=== PATIENT | male | born 1975 | race Caucasian/White ===

== ENCOUNTER 2019-05-02 00:06 | Emergency (ER) | payer BC ==
[2019-05-02] MEDS ORDERED: Ketorolac 60 MG/2 ML SDV IM ONE (00:42)
[2019-05-02] MEDS ORDERED: methylPREDNISolone Sodium Succinate 125 MG/2 ML SDV IM ONE (00:42)
--- NOTE | 2019-05-02 00:44 | EDM.PDOC ---
ED HPI GENERAL MEDICAL PROBLEM - General Chief Complaint: Back Pain or Injury Stated Complaint: BACK PAIN Time Seen by Provider: 05/02/19 00:19 - History of Present Illness INITIAL COMMENTS - FREE TEXT/NARRATIVE: HISTORY AND PHYSICAL: History of present illness: The patient is a 43-year-old male with a history of herniated disc in 2016 for which he had an MRI here on June 25, 2016 which showed a protruding disc at L5- S1 with disc impingement on the right para sagittal S1 nerve root and I actually saw this patient 2 days afterwards for pain and gave him pain medication. He followed up in our clinic and did physical therapy for 6-8 weeks as well as saw chiropractor and the pain significantly improved and he never had to have surgery. The patient does say that as a result of this herniated disc he does have residual nerve numbness on his right leg going down to his foot and that is not new or different this evening. He says that about 2 months ago he started having new back pain without any new injury or activity and it is more on his left side now. He says that he has seen his chiropractor and he does have an appointment in our clinic on Tuesday to have a repeat MRI and evaluation and has been starting to use his old medications from his prior problem in 2016. He has used [id number] Tylenol as well as an old oxycodone. He says that the pain worsened tonight and he came for evaluation. He has no bowel or bladder disturbances no flank pain no hematuria or dysuria and no other systemic issues. He says the pain originates in his butt on the left and goes down his leg very similar to his issue in 2016 but on the opposite side. Review of systems: As per history of present illness and below otherwise all systems reviewed and negative. Past medical history: As per history of present illness and as reviewed below otherwise noncontributory. Surgical history: As per history of present illness and as reviewed below otherwise noncontributory. Social history: No reported history of drug or alcohol abuse. Family history: As per history of present illness and as reviewed below otherwise noncontributory. Physical exam: General: Well-developed well-nourished man who is nontoxic and ambulated into the ED without assistance. Vital signs are noted by me HEENT: Atraumatic, normocephalic, negative for conjunctival pallor or scleral icterus, mucous membranes moist, throat clear, neck supple, nontender, trachea midline. Lungs: Clear to auscultation, breath sounds equal bilaterally, chest nontender. Heart: S1S2, regular, rate and rhythm no overt murmurs Abdomen: Soft, nondistended, nontender. NABS. Negative for costovertebral tenderness. Pelvis: Stable nontender. Genitourinary: Deferred. Rectal: Deferred. Extremities: Atraumatic, negative for cords or calf pain. Neurovascular unremarkable. No pedal edema Neuro: Awake, alert, oriented. Cranial nerves II through XII unremarkable. Cerebellum unremarkable. Motor and sensory unremarkable throughout. Exam nonfocal. Patellar reflexes are +2 over 4 bilaterally and dorsi and plantar flexion is intact 5/5 bilaterally inclusive of the great toe and inversion and even version of the feet is intact. Back: There are no midline step-offs in his defects of the thoracic or lumbar spine no posterior pelvis tenderness and I cannot reproduce the pain by palpating the patient's butt cheek area at the sciatic groove Diagnostics: Therapeutics: Toradol IM Solu-Medrol IM As the patient has had a history of reduced renal function I will not advised nonsteroidals but give one dose of Toradol here. I will place him on prednisone and also give him a muscle relaxer and some Percocet and stressed the need to follow-up with his provider as scheduled on TuesdayAshley. The patient is aware of reasons to return to the ED. I advised him not to take his old pain medication as there are 2 years old and are likely . The patient does tell me he did take an oxycodone which was 2 years old a proximally in our half ago and is concerned about getting a shot of Dilaudid like I gave him last time and I will hold doing that. Impression: Acute on chronic back pain, likely herniated disc with sciatica Definitive disposition and diagnosis as appropriate pending reevaluation and review of above. low bACK Pain Score (Numeric/FACES): 8 - Related Data Allergies Allergy/AdvReac Type Severity Reaction Status Date / Time erythromycin base Allergy Rash Verified 05/02/19 00:08 penicillin Allergy Rash Verified 05/02/19 00:08 Home Meds: Home Meds Ascorbic Acid [Vitamin C] 1 tab PO DAILY 05/02/19 [History] Fish Oil/[place]-3 Fatty Acids [Fish Oil 1,000 MG] 1 tab PO DAILY 05/02/19 [ History] oxyCODONE 0 mg PO ASDIRECTED PRN 05/02/19 [History] Past Medical History HEENT History: Reports: None Cardiovascular History: Reports: None Respiratory History: Reports: None Gastrointestinal History: Reports: GERD Genitourinary History: Reports: None Musculoskeletal History: Reports: None Neurological History: Reports: None, Other (See Below) Other Neuro History: HERNIATED DISC Psychiatric History: Reports: None Endocrine/Metabolic History: Reports: None Hematologic History: Reports: None Immunologic History: Reports: None Oncologic (Cancer) History: Reports: None Dermatologic History: Reports: None - Infectious Disease History Infectious Disease History: Reports: None - Past Surgical History Head Surgeries/Procedures: Reports: None GI Surgical History: Reports: Hernia, Inguinal Musculoskeletal Surgical History: Reports: Arthroscopic Knee, Other (See Below) Other Musculoskeletal Surgeries/Procedures:: HERNIATED DISK Social & Family History - Family History Family Medical History: Noncontributory - Tobacco Use Smoking Status *Q: Never Smoker - Recreational Drug Use Recreational Drug Use: No ED ROS GENERAL - Review of Systems Review Of Systems: ROS reveals no pertinent complaints other than HPI. ED EXAM, GENERAL - Physical Exam Exam: See Below (See dictation) Course - Vital Signs Last Recorded V/S: Last Vital Signs Temp 36.3 C 05/02/19 00:20 Pulse 78 05/02/19 00:20 Resp 18 05/02/19 00:20 BP 123/82 05/02/19 00:20 Pulse Ox 96 05/02/19 00:20 - Orders/Labs/Meds Meds: Medications Discontinued Medications Generic Name Dose Route Start Last Admin Trade Name Freq PRN Reason Stop Dose Admin Ketorolac Tromethamine 60 mg 05/02/19 00:42 Toradol IM 05/02/19 00:43 ONETIME ONE Methylprednisolone Sodium Succinate 125 mg 05/02/19 00:42 Solu-Medrol IM 05/02/19 00:43 ONETIME ONE Departure - Departure Time of Disposition: 00:51 Disposition: Home, Self-Care 01 Condition: Good Clinical Impression: Acute exacerbation of chronic low back pain Herniated intervertebral disc Qualifiers: Spinal region: lumbar Qualified Code(s): M51.26 - Other intervertebral disc displacement, lumbar region - Discharge Information Referrals: Ashley Rainey PA [Primary Care Provider] - Forms: ED Department Discharge Additional Instructions: The following information is given to patients seen in the emergency department who are being discharged to home. This information is to outline your options for follow-up care. We provide all patients seen in our emergency department with a follow-up referral. The need for follow-up, as well as the timing and circumstances, are variable depending upon the specifics of your emergency department visit. If you don't have a primary care physician on staff, we will provide you with a referral. We always advise you to contact your personal physician following an emergency department visit to inform them of the circumstance of the visit and for follow-up with them and/or the need for any referrals to a consulting specialist. The emergency department will also refer you to a specialist when appropriate. This referral assures that you have the opportunity for followup care with a specialist. All of these measure are taken in an effort to provide you with optimal care, which includes your followup. Under all circumstances we always encourage you to contact your private physician who remains a resource for coordinating your care. When calling for followup care, please make the office aware that this follow-up is from your recent emergency room visit. If for any reason you are refused follow-up, please contact the [facility] emergency department at and ask to speak to the emergency department charge nurse. [facility] Primary care- Internal Medicine and Family [address] [address] Please take all medications as prescribed and keep your appointment as scheduled with your provider in the clinic on Tuesday for probable outpatient MRI scheduling and further care. Return to ER as needed and as discussed. Do not take your old medications. You have been given prednisone, Percocet, Flexeril from [facility]
[2019-05-02 01:15] VITALS: BP 121/78
== END 2019-05-02 01:10 | disposition home or self-care (01) ==
LOC: MW.ED 00:06
DX: M51.26 Other intervertebral disc displacement, lumbar region (principal); Z88.0 Allergy status to penicillin; Z88.1 Allergy status to other antibiotic agents
CPT/HCPCS: 96372; 99283; J1885; J2930

== ENCOUNTER 2021-01-15 18:16 | Emergency (ER) | payer BC ==
[2021-01-15] MEDS ORDERED: Sodium Chloride 0.9% 1,000 ML IV ONE (18:53)
[2021-01-15] MEDS ORDERED: Sodium Chloride 0.9% 10 ML Syringe FLUSH PRN (18:53)
[2021-01-15] MEDS ORDERED: Acetaminophen 500 MG Tab PO ONE (18:53)
[2021-01-15] MEDS ORDERED: Sodium Chloride 0.9% 2.5 ML Syringe FLUSH PRN (18:53)
[2021-01-15] MEDS ORDERED: Ketorolac 30 MG/ML SDV IVPUSH ONE (18:53)
--- NOTE | 2021-01-15 19:29 | CR ---
HISTORY: Fever and cough COMPARISON: None available FINDINGS: A portable erect AP view of the chest was obtained at 1914 hours. The lungs are clear. No focal or diffuse infiltrates are present. The heart is normal in size. The mediastinum is normal in appearance. The osseous structures are normal in appearance for the patient`s age. IMPRESSION: Normal portable chest single view. Dictated by Edil Fitzpatrick MD @ Jan 15 2021 7:26PM Signed by Dr. Edil Fitzpatrick @ Jan 15 2021 7:27PM
[2021-01-15 19:48] LABS: CARBON DIOXIDE,CO2 26.1 mmol/L (21.0-32.0); POTASSIUM,K 3.9 mmol/L (3.5-5.1)
[2021-01-15 20:09] LABS: CORONAVIRUS COVID-19 NAA POSITIVE (NEGATIVE); INFLUENZA A NAA NEGATIVE (NEGATIVE); INFLUENZA B NAA NEGATIVE (NEGATIVE)
--- NOTE | 2021-01-15 20:42 | EDM.PDOC ---
ED HPI GENERAL MEDICAL PROBLEM - General Chief Complaint: Fever Stated Complaint: HIGH CONSISTEN FEVER Time Seen by Provider: 01/15/21 18:22 - History of Present Illness INITIAL COMMENTS - FREE TEXT/NARRATIVE: HISTORY AND PHYSICAL: History of present illness: This is a 45-year-old healthy gentleman who presents ER today complaining of fever for the last 4 to 5 days. Patient denies any nausea, vomiting, diarrhea, dysuria, frequency, urgency, chest pain, shortness of breath. Patient reports that he has been drinking bottles of Pedialyte without difficulty. Patient reports that he has an occasional nonproductive cough. Patient denies any shortness of breath. Patient denies any abdominal discomfort or chest pain. Patient denies any known Covid exposures. Patient reports he has not had his coronavirus vaccine as of yet. Patient denies any history of hypertension, diabetes, liver, lung, kidney problems. Patient denies any history of immunocompromise state. Review of systems: As per history of present illness and below otherwise all systems reviewed and negative. Past medical history: As per history of present illness and as reviewed below otherwise noncontributory. Surgical history: As per history of present illness and as reviewed below otherwise noncontributory. Social history: No reported history of drug or alcohol abuse. Family history: As per history of present illness and as reviewed below otherwise noncontributory. Physical exam: This patient was seen and evaluated during the 2019 SARS-CoV-2 novel coronavirus pandemic period. Community viral transmission is ongoing at time of this encounter and the emergency department is operating under pandemic response procedures. Constitutional: Patient is oriented to person, place, and time. Appears well- developed and well-nourished. No distress. HEENT: Moist mucous membranes Head: Normocephalic and atraumatic Eyes: Right eye exhibits no discharge. Left eye exhibits no discharge. No scleral icterus Neck: Normal range of motion. No tracheal deviation present. Cardiovascular: Normal rate and regular rhythm. Pulmonary: Effort normal, no respiratory distress. Abdominal: No distention Musculoskeletal: Normal range of motion Neurologic: Alert and oriented to person, place and time. Skin: [place], warm and dry. Psychiatric: Normal mood and affect. Behavior is normal. Judgment and thought content normal. Nursing note and vital signs have been reviewed Patient's ER physical exam significant for lungs clear without any wheezing rales or rhonchi, oropharynx clear, tympanic membranes intact. Patient is resting comfortably in bed without any tachypnea or difficulty speaking in full sentences. Patient is ambulating in the ED without difficulty. Diagnostics: CBC, CMP unremarkable Chest Xray: Normal cardiac silhouette No infiltrates or effusions identified. No PTX No evidence of acute bony fracture. As interpreted by ER MD: Dandre Coronavirus test positive Therapeutics: NSS x1 L Toradol 30 mg IV x1 Tylenol 1 g p.o. x1 Assessment and plan: This is a 45-year-old gentleman who presents ER today secondary to fever for several days. Patient reports that his fever defervesced as with acetaminophen however shortly thereafter he reports of spikes back up to 104 range. Patient's labs are all unremarkable except for his coronavirus test which is positive. I have had a long discussion with the patient regarding the test results and options. Patient's pulse ox currently is between 93 to 97% on room air. At this time, the patient does not meet criteria for inpatient/observation level of care. At this time there is no indication for treatment with antibiotics, remdesivir, steroids. Patient be discharged home with instructions to self quarantine and to follow-up with his primary care physician as well as the [facility] department for further instructions. Reassessment at the time of disposition demonstrates that the patient is in no acute distress. The patient has remained stable throughout the entire ED visit and is without objective evidence for acute process requiring urgent intervention or hospitalization. The patient is stable for discharge, counseling is provided as documented above, discussed symptomatic treatment and specific conditions for return. I have spoken with the patient/caregiver and discussed todays findings, in addition to providing specific details for the plan of care. Questions are answered and there is agreement with the plan. Definitive disposition and diagnosis as appropriate pending reevaluation and review of above. Generalized Pain Score (Numeric/FACES): 2 - Related Data Allergies Allergy/AdvReac Type Severity Reaction Status Date / Time erythromycin base Allergy Rash Verified 01/15/21 18:40 penicillin Allergy Rash Verified 01/15/21 18:40 Home Meds: Home Meds Losartan [Cozaar] 01/15/21 [History] atorvaSTATin Calcium [Atorvastatin Calcium] 01/15/21 [History] Past Medical History HEENT History: Reports: None Cardiovascular History: Reports: None, High Cholesterol Respiratory History: Reports: None Gastrointestinal History: Reports: GERD Genitourinary History: Reports: None Other Genitourinary History: Enlarged kidney filter Musculoskeletal History: Reports: None Neurological History: Reports: None, Other (See Below) Other Neuro History: HERNIATED DISC Psychiatric History: Reports: None Endocrine/Metabolic History: Reports: None Hematologic History: Reports: None Immunologic History: Reports: None Oncologic (Cancer) History: Reports: None Dermatologic History: Reports: None - Infectious Disease History Infectious Disease History: Reports: Chicken Pox - Past Surgical History Head Surgeries/Procedures: Reports: None GI Surgical History: Reports: Hernia, Inguinal Musculoskeletal Surgical History: Reports: Arthroscopic Knee, Other (See Below) Other Musculoskeletal Surgeries/Procedures:: HERNIATED DISK Social & Family History - Family History Family Medical History: No Pertinent Family History - Tobacco Use Tobacco Use Status *Q: Never Tobacco User - Caffeine Use Caffeine Use: Reports: Coffee - Recreational Drug Use Recreational Drug Use: No ED ROS GENERAL - Review of Systems Review Of Systems: See Below ED EXAM, GENERAL - Physical Exam Exam: See Below Course - Vital Signs Last Recorded V/S: Last Vital Signs Temp 100.9 F H 01/15/21 19:18 Pulse Resp BP Pulse Ox - Orders/Labs/Meds Orders: Active Orders 24 hr Category Date Time Status Sodium Chloride 0.9% [Saline Flush] Med 01/15/21 18:53 Active 10 ml FLUSH ASDIRECTED PRN Sodium Chloride 0.9% [Saline Flush] Med 01/15/21 18:53 Active 2.5 ml FLUSH ASDIRECTED PRN Saline Lock Insert [OM.PC] Stat Oth 01/15/21 18:53 Ordered Medication Orders Sodium Chloride (Saline Flush) 10 ml FLUSH ASDIRECTED PRN PRN Reason: Keep Vein Open Last Admin: 01/15/21 19:18 Dose: 10 ml Documented by: GOPI Sodium Chloride (Saline Flush) 2.5 ml FLUSH ASDIRECTED PRN PRN Reason: Keep Vein Open Last Admin: 01/15/21 19:19 Dose: 2.5 ml Documented by: KLEMANDO Labs: Laboratory Tests 01/15/21 01/15/21 01/15/21 Range/Units 19:15 19:15 19:30 WBC 7.59 (4.0-11.0) K/uL RBC 4.44 L (4.50-5.90) M/uL Hgb 14.0 (13.0-17.0) g/dL Hct 40.8 (38.0-50.0) % MCV 91.9 (80.0-98.0) fL MCH 31.5 (27.0-32.0) pg MCHC 34.3 (31.0-37.0) g/dL RDW Std Deviation 43.3 (28.0-62.0) fl RDW Coeff of Theo 13 (11.0-15.0) % Plt Count 248 (150-400) K/uL MPV 9.70 (7.40-12.00) fL Neut % (Auto) 86.1 H (48.0-80.0) % Lymph % (Auto) 6.6 L (16.0-40.0) % [place] % (Auto) 7.0 (0.0-15.0) % Eos % (Auto) 0.0 (0.0-7.0) % Baso % (Auto) 0.3 (0.0-1.5) % Neut # (Auto) 6.5 H (1.4-5.7) K/uL Lymph # (Auto) 0.5 L (0.6-2.4) K/uL [place] # (Auto) 0.5 (0.0-0.8) K/uL Eos # (Auto) 0.0 (0.0-0.7) K/uL Baso # (Auto) 0.0 (0.0-0.1) K/uL Nucleated RBC % 0.0 /100WBC Nucleated RBCs # 0 K/uL Sodium 135 L (136-148) mmol/L Potassium 3.9 (3.5-5.1) mmol/L Chloride 99 (98-107) mmol/L Carbon Dioxide 26.1 (21.0-32.0) mmol/L BUN 17 (7.0-18.0) mg/dL Creatinine 1.5 H (0.8-1.3) mg/dL Est Cr Clr Drug Dosing 67.63 mL/min Estimated GFR (MDRD) 51.1 ml/min Glucose 112 H (74-106) mg/dL Calcium 8.8 (8.5-10.1) mg/dL Total Bilirubin 0.4 (0.2-1.0) mg/dL AST 21 (15-37) IU/L ALT 33 (14-63) IU/L Alkaline Phosphatase 64 (46-116) U/L Total Protein 7.6 (6.4-8.2) g/dL Albumin 3.3 L (3.4-5.0) g/dL Globulin 4.3 H (2.6-4.0) g/dL Albumin/Globulin Ratio 0.8 L (0.9-1.6) Urine Color YELLOW Urine Appearance HAZY Urine pH 5.0 (5.0-8.0) Ur Specific [place] >= 1.030 (1.001-1.035) Urine Protein 100 H (NEGATIVE) mg/dL Urine Glucose (UA) NEGATIVE (NEGATIVE) mg/dL Urine Ketones TRACE H (NEGATIVE) mg/dL Urine Occult Blood NEGATIVE (NEGATIVE) Urine Nitrite NEGATIVE (NEGATIVE) Urine Bilirubin NEGATIVE (NEGATIVE) Urine Urobilinogen 0.2 (<2.0) EU/dL Ur Leukocyte Esterase NEGATIVE (NEGATIVE) Urine RBC 0-1 (0-2/HPF) Urine WBC 0-1 (0-5/HPF) Ur Epithelial Cells RARE (NONE-FEW) Urine Bacteria RARE (NEGATIVE) Influenza Type A RNA (NEGATIVE) Influenza Type B RNA (NEGATIVE) SARS-CoV-2 RNA (MELLISSA) (NEGATIVE) 01/15/21 Range/Units 19:30 WBC (4.0-11.0) K/uL RBC (4.50-5.90) M/uL Hgb (13.0-17.0) g/dL Hct (38.0-50.0) % MCV (80.0-98.0) fL MCH (27.0-32.0) pg MCHC (31.0-37.0) g/dL RDW Std Deviation (28.0-62.0) fl RDW Coeff of Theo (11.0-15.0) % Plt Count (150-400) K/uL MPV (7.40-12.00) fL Neut % (Auto) (48.0-80.0) % Lymph % (Auto) (16.0-40.0) % [place] % (Auto) (0.0-15.0) % Eos % (Auto) (0.0-7.0) % Baso % (Auto) (0.0-1.5) % Neut # (Auto) (1.4-5.7) K/uL Lymph # (Auto) (0.6-2.4) K/uL [place] # (Auto) (0.0-0.8) K/uL Eos # (Auto) (0.0-0.7) K/uL Baso # (Auto) (0.0-0.1) K/uL Nucleated RBC % /100WBC Nucleated RBCs # K/uL Sodium (136-148) mmol/L Potassium (3.5-5.1) mmol/L Chloride (98-107) mmol/L Carbon Dioxide (21.0-32.0) mmol/L BUN (7.0-18.0) mg/dL Creatinine (0.8-1.3) mg/dL Est Cr Clr Drug Dosing mL/min Estimated GFR (MDRD) ml/min Glucose (74-106) mg/dL Calcium (8.5-10.1) mg/dL Total Bilirubin (0.2-1.0) mg/dL AST (15-37) IU/L ALT (14-63) IU/L Alkaline Phosphatase (46-116) U/L Total Protein (6.4-8.2) g/dL Albumin (3.4-5.0) g/dL Globulin (2.6-4.0) g/dL Albumin/Globulin Ratio (0.9-1.6) Urine Color Urine Appearance Urine pH (5.0-8.0) Ur Specific [place] (1.001-1.035) Urine Protein (NEGATIVE) mg/dL Urine Glucose (UA) (NEGATIVE) mg/dL Urine Ketones (NEGATIVE) mg/dL Urine Occult Blood (NEGATIVE) Urine Nitrite (NEGATIVE) Urine Bilirubin (NEGATIVE) Urine Urobilinogen (<2.0) EU/dL Ur Leukocyte Esterase (NEGATIVE) Urine RBC (0-2/HPF) Urine WBC (0-5/HPF) Ur Epithelial Cells (NONE-FEW) Urine Bacteria (NEGATIVE) Influenza Type A RNA NEGATIVE (NEGATIVE) Influenza Type B RNA NEGATIVE (NEGATIVE) SARS-CoV-2 RNA (MELLISSA) POSITIVE H (NEGATIVE) Meds: Medications Generic Name Dose Route Start Last Admin Trade Name Freq PRN Reason Stop Dose Admin Sodium Chloride 10 ml 01/15/21 18:53 01/15/21 19:18 Saline Flush FLUSH 10 ml ASDIRECTED PRN Administration Keep Vein Open Sodium Chloride 2.5 ml 01/15/21 18:53 01/15/21 19:19 Saline Flush FLUSH 2.5 ml ASDIRECTED PRN Administration Keep Vein Open Discontinued Medications Generic Name Dose Route Start Last Admin Trade Name Ena PRN Reason Stop Dose Admin Acetaminophen 1,000 mg 01/15/21 18:53 01/15/21 19:18 Tylenol Extra Strength PO 01/15/21 18:54 1,000 mg ONETIME ONE Administration Sodium Chloride 1,000 mls @ 999 mls/hr 01/15/21 18:53 01/15/21 19:17 Normal Saline IV 01/15/21 19:53 999 mls/hr .Bolus ONE Administration Ketorolac Tromethamine 30 mg 01/15/21 18:53 01/15/21 19:17 Toradol IVPUSH 01/15/21 18:54 30 mg ONETIME ONE Administration Departure - Departure Time of Disposition: 20:42 Disposition: Home, Self-Care 01 Condition: Good Clinical Impression: COVID-19 virus infection - Discharge Information Instructions: COVID-19 Vaccine Information, COVID-19 Frequently Asked Questions, 10 Things You Can Do to Manage Your COVID-19 Symptoms at Home - CDC, COVID-19: Quarantine vs. Isolation - CDC, Prevent the Spread of COVID-19 if You Are Sick - [facility] [place] Referrals: Ashley Rainey PA [Primary Care Provider] - Additional Instructions: You were seen and evaluated in the ER today secondary to fever for several days. All your test except for your coronavirus test have come back and have been unremarkable. Your coronavirus test was positive today in the ED. You should go home and rest, continue drinking plenty of fluids, you can take acetaminophen 650 mg every 6 hours as needed for fever. You can also add ibuprofen 600 mg every 6 hours as needed for fever and muscle aches. 1. Your COVID-19 screening is positive. That means you do have the coronavirus and you are considered contagious. Your vital signs and oxygen saturation are well enough that you were able to monitor your symptoms at home. Continue to monitor for trouble breathing, new confusion or inability to arouse, bluish lips or face or any of the other symptoms we discussed -if this occurs please return to the emergency room. 2. Please self quarantine over the next 10 days. Inform any persons that you have been in contact with since you started becoming symptomatic that you have tested positive; they should be made aware and take the appropriate steps as needed. 3. You can take NyQuil during the evening to help get a restful night sleep. May alternate Tylenol and ibuprofen as needed for pain and fever management. 4. The [facility] department will be calling you and following up with you. The [facility] [employer] Hotline phone number , They are open Tuesday - Tuesday 7am - 7pm. Follow up with your primary care provider for re-evaluation and re-testing after the 10 day quarantine and discuss when you should be seen. The following information is given to patients seen in the emergency department who are being discharged to home. This information is to outline your options for follow-up care. We provide all patients seen in our emergency department with a follow-up referral. The need for follow-up, as well as the timing and circumstances, are variable depending upon the specifics of your emergency department visit. If you don't have a primary care physician on staff, we will provide you with a referral. We always advise you to contact your personal physician following an emergency department visit to inform them of the circumstance of the visit and for follow-up with them and/or the need for any referrals to a consulting specialist. The emergency department will also refer you to a specialist when appropriate. This referral assures that you have the opportunity for follow-up care with a specialist. All of these measure are taken in an effort to provide you with optimal care, which includes your follow-up. Under all circumstances we always encourage you to contact your private physician who remains a resource for coordinating your care. When calling for follow-up care, please make the office aware that this follow-up is from your recent emergency room visit. If for any reason you are refused follow-up, please contact the [facility] Emergency Department at and asked to speak to the emergency department charge nurse. Hernan Adolfo [facility] - Primary Care [address] [place] [id number] [facility] [address] [place] [address] Sepsis Event Note (ED) - Evaluation Sepsis Screening Result: No Definite Risk - Focused Exam Vital Signs: Vital Signs Temp 01/15/21 19:18 100.9 F H - My Orders Last 24 Hours: My Active Orders 01/15/21 18:53 Sodium Chloride 0.9% [Saline Flush] 10 ml FLUSH ASDIRECTED PRN Sodium Chloride 0.9% [Saline Flush] 2.5 ml FLUSH ASDIRECTED PRN Saline Lock Insert [OM.PC] Stat - Assessment/Plan Last 24 Hours: My Active Orders 01/15/21 18:53 Sodium Chloride 0.9% [Saline Flush] 10 ml FLUSH ASDIRECTED PRN Sodium Chloride 0.9% [Saline Flush] 2.5 ml FLUSH ASDIRECTED PRN Saline Lock Insert [OM.PC] Stat
[2021-01-15 20:55] VITALS: BP 117/69; PULSE 76
== END 2021-01-15 20:54 | disposition home or self-care (01) ==
LOC: MW.ED 18:16
DX: U07.1 COVID-19 (principal); E78.00 Pure hypercholesterolemia, unspecified; Z79.899 Other long term (current) drug therapy
CPT/HCPCS: 0240U; 36415; 71045; 80053; 81001; 85025; 96374; 99283; A9270; J1885; J7030

== ENCOUNTER 2021-01-20 08:21 | Inpatient (IN) | payer BC ==
[2021-01-20] MEDS ORDERED: Dexamethasone 10 MG/ML SDV IVPUSH ONE (08:37)
--- NOTE | 2021-01-20 08:41 | EDM.PDOC ---
ED HPI GENERAL MEDICAL PROBLEM - General Chief Complaint: Respiratory Problem Stated Complaint: COVID Time Seen by Provider: 01/20/21 08:25 - History of Present Illness INITIAL COMMENTS - FREE TEXT/NARRATIVE: 45-year-old male with a history of hypertension and hyperlipidemia but no prior lung history non-smoker presenting with hypoxia from the infusion clinic. Patient was diagnosed with COVID-19 5 days ago. However, his symptoms started 8 days ago. He has felt fatigued and generally quite poor with some shortness of breath throughout his course. He states that he does not feel much different today than he did 5 days ago. However 5 days ago his O2 saturation was in the low 90s. Today when he arrived at the outpatient infusion center for his treatment his oxygen level was in the upper 80s. And so he was referred into the ER. He denies chest pain he denies symptoms without exacerbating or alleviating factors radiation or other associated symptoms. Headache Pain Score (Numeric/FACES): 2 - Related Data Allergies Allergy/AdvReac Type Severity Reaction Status Date / Time erythromycin base Allergy Rash Verified 01/20/21 08:27 penicillin Allergy Rash Verified 01/20/21 08:27 Home Meds: Home Meds Losartan [Cozaar] 25 mg PO DAILY 01/15/21 [History] atorvaSTATin Calcium [Atorvastatin Calcium] 40 mg PO DAILY 01/15/21 [History] Past Medical History HEENT History: Reports: None Cardiovascular History: Reports: None, High Cholesterol Respiratory History: Reports: None Gastrointestinal History: Reports: GERD Genitourinary History: Reports: None Other Genitourinary History: Enlarged kidney filter Musculoskeletal History: Reports: None Neurological History: Reports: None, Other (See Below) Other Neuro History: HERNIATED DISC. Psychiatric History: Reports: None Endocrine/Metabolic History: Reports: None Hematologic History: Reports: None Immunologic History: Reports: None Oncologic (Cancer) History: Reports: None Dermatologic History: Reports: None - Infectious Disease History Infectious Disease History: Reports: Chicken Pox - Past Surgical History Head Surgeries/Procedures: Reports: None GI Surgical History: Reports: Hernia, Inguinal Other Neurological Surgeries/Procedures: Back surgery Musculoskeletal Surgical History: Reports: Arthroscopic Knee, Other (See Below) Other Musculoskeletal Surgeries/Procedures:: HERNIATED DISK Social & Family History - Family History Family Medical History: No Pertinent Family History - Tobacco Use Tobacco Use Status *Q: Never Tobacco User - Caffeine Use Caffeine Use: Reports: Coffee - Recreational Drug Use Recreational Drug Use: No ED ROS GENERAL - Review of Systems Review Of Systems: See Below Free Text/Narrative/Comment: General: No fever. ENT: No sore throat. Neck: No neck stiffness. Respiratory: Per HPI Cardiac: No chest pain. Gastrointestinal: No vomiting or abdominal pain. Neurologic: No headache. ED EXAM, GENERAL - Physical Exam Exam: See Below Free Text/Narrative:: General Appearance: No acute distress, appears comfortable HEENT: Normocephalic/atraumatic, sclera anicteric, mucous membranes moist Neck: Normal range of motion Chest and Lungs: Bilateral breath sounds, fine rhonchi at the bilateral bases Cardiovascular: Regular rate and rhythm, no murmur, no lower extremity swelling Abdomen: Soft, non-tender Back: Normal Musculoskeletal: No edema or tenderness Neurologic: Awake, alert, no obvious deficits, moving all extremities Psychiatric: Appropriate, cooperative Course - Vital Signs Last Recorded V/S: Last Vital Signs Temp 96.7 F L 01/20/21 08:28 Pulse 83 01/20/21 08:56 Resp 18 01/20/21 08:56 BP 129/86 01/20/21 08:56 Pulse Ox 96 01/20/21 08:56 - Orders/Labs/Meds Orders: Active Orders 24 hr Category Date Time Status Patient Status [ADT] Routine ADT 01/20/21 09:42 Ordered Labs: Laboratory Tests 01/20/21 01/20/21 Range/Units 08:46 08:46 WBC 11.84 H (4.0-11.0) K/uL RBC 4.20 L (4.50-5.90) M/uL Hgb 13.2 (13.0-17.0) g/dL Hct 38.1 (38.0-50.0) % MCV 90.7 (80.0-98.0) fL MCH 31.4 (27.0-32.0) pg MCHC 34.6 (31.0-37.0) g/dL RDW Std Deviation 43.4 (28.0-62.0) fl RDW Coeff of Theo 13 (11.0-15.0) % Plt Count 289 (150-400) K/uL MPV 9.40 (7.40-12.00) fL Neut % (Auto) 88.6 H (48.0-80.0) % Lymph % (Auto) 5.7 L (16.0-40.0) % [place] % (Auto) 5.6 (0.0-15.0) % Eos % (Auto) 0.0 (0.0-7.0) % Baso % (Auto) 0.1 (0.0-1.5) % Neut # (Auto) 10.5 H (1.4-5.7) K/uL Lymph # (Auto) 0.7 (0.6-2.4) K/uL [place] # (Auto) 0.7 (0.0-0.8) K/uL Eos # (Auto) 0.0 (0.0-0.7) K/uL Baso # (Auto) 0.0 (0.0-0.1) K/uL Nucleated RBC % 0.0 /100WBC Nucleated RBCs # 0 K/uL Sodium 132 L (136-148) mmol/L Potassium 4.3 (3.5-5.1) mmol/L Chloride 96 L (98-107) mmol/L Carbon Dioxide 27.2 (21.0-32.0) mmol/L BUN 16 (7.0-18.0) mg/dL Creatinine 1.5 H (0.8-1.3) mg/dL Est Cr Clr Drug Dosing 67.63 mL/min Estimated GFR (MDRD) 51.1 ml/min Glucose 130 H (74-106) mg/dL Calcium 8.9 (8.5-10.1) mg/dL Meds: Medications Discontinued Medications Generic Name Dose Route Start Last Admin Trade Name Freq PRN Reason Stop Dose Admin Dexamethasone 6 mg 01/20/21 08:37 01/20/21 08:50 Decadron IVPUSH 01/20/21 08:38 6 mg ONETIME ONE Administration Departure - Departure Time of Disposition: 09:43 Disposition: Admitted As Inpatient 68 Condition: Good Clinical Impression: COVID-19 - Discharge Information *PRESCRIPTION DRUG MONITORING PROGRAM REVIEWED*: Not Applicable *COPY OF PRESCRIPTION DRUG MONITORING REPORT IN PATIENT IVONNE: Not Applicable Referrals: PCP,None [Primary Care Provider] - Forms: ED Department Discharge Sepsis Event Note (ED) - Evaluation Sepsis Screening Result: No Definite Risk - Focused Exam Vital Signs: Vital Signs Temp Pulse Resp BP Pulse Ox 01/20/21 08:56 83 18 129/86 96 01/20/21 08:28 96.7 F L 89 17 126/81 94 L - My Orders Last 24 Hours: My Active Orders 01/20/21 09:42 Patient Status [ADT] Routine - Assessment/Plan Last 24 Hours: My Active Orders 01/20/21 09:42 Patient Status [ADT] Routine Assessment:: 45-year-old male presenting with acute hypoxic respiratory failure secondary to COVID-19 infection. No chest pain nothing to suggest ACS. Patient without signs of sepsis. But does have hypoxia requiring oxygen supplementation. Given this and his history of hypertension and hyperlipidemia I think admission for oxygen therapy and Decadron is indicated. Patient is agreeable to this plan. On prior lab review he had some minimal up-trending of his renal function on labs yesterday and so CBC and BMP repeated. Chest x-ray ordered as well. Will discuss with hospitalist when labs are back. Given the lack of chest pain the lack of any acute change in the lack of any tachycardia I do not believe his worsening hypoxia represents pulmonary embolism. Nor does he of findings that suggest new heart failure. 0915: Labs with stable minimal renal insufficiency and slightly downtrending leukocytosis. Patient stable on nasal cannula will discuss with hospitalist. 0940: CXR with new linear atelectasis vs infiltrate in right mid lung. Given down trending WBC I do not believe this represents untreated bacterial PNA. Con't to await hospitalist callback. 0942: Pt discussed with Dr. Hung. Will admit to inpatient.
[2021-01-20 09:11] LABS: CARBON DIOXIDE,CO2 27.2 mmol/L (21.0-32.0); POTASSIUM,K 4.3 mmol/L (3.5-5.1)
--- NOTE | 2021-01-20 09:37 | CR ---
INDICATION: Hypoxic, COVID positive. TECHNIQUE: Chest 1 view. COMPARISON: Chest radiograph 01/19/2021. FINDINGS: New linear atelectasis or infiltrate in the right midlung. Stable hazy opacity in the left lung base. No pleural effusion or pneumothorax. Normal heart size and pulmonary vascularity. The bones are unremarkable. IMPRESSION: 1. New linear atelectasis or infiltrate in the right midlung. 2. Stable hazy opacity in the left lung base. Dictated by Denita Delcid MD @ Jan 20 2021 9:33AM Signed by Dr. Denita Delcid @ Jan 20 2021 9:35AM
[2021-01-20 10:24] LABS: BILIRUBIN INDIRECT 0.4
[2021-01-20] MEDS ORDERED: Ondansetron 4 MG/2 ML SDV IVPUSH PRN (10:44)
--- NOTE | 2021-01-20 10:52 | PCM.HP.2 ---
H&P History of Present Illness - General Date of Service: 01/20/21 Admit Problem/Dx: Admission Diagnosis/Problem Admission Diagnosis/Problem Hypoxia Source of Information: Patient History Limitations: Reports: No Limitations - History of Present Illness Initial Comments - Free Text/Narative: This 45-year-old male with past medical history of HLD presented to the ER today after he was seen for banding fusion. His saturations were noted to be in the mid 80s and he was sent to the ER for evaluation. He was initially diagnosed with Covid on 01/15/2021 in the ER when he presented for continued fevers along with sinus congestion and mild sore throat with occasional nonproductive cough. He reports approximately 2 weeks ago he felt he had sinus infection but then improved. Approximately 7 days ago when he started feeling worse again with occasional nonproductive cough, fevers that reached 102-104 F at home. He has been taking Motrin and Tylenol [id number] to help keep fevers down and help with the generalized malaise and body aches. He reports mild sore throat. Smell and taste remain intact. Reports headache that is nearly constant no visual concerns or neck pain. Reports some chest tightness with deep breathing then nonproductive dry cough. He denies any abdominal pain. No dysuria or urinary concerns. He does report diarrhea 2 to 3 days ago but has no BM since. He reports he has not had Covid vaccine yet. Reports his had Covid oliver mateemir 5 months ago and has recovered. 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 He denies any tobacco use, alcohol use or recreational drug use. In the ER mild leukocytosis noted at 11,000, platelets 289,000. Sodium 132, chloride 96, BUN 16 creatinine 1.5, which is near baseline. Glucose slightly elevated at 130. Chest x-ray reveals new linear atelectasis and/or infiltrate in the right midlung, stable hazy opacity in the left lung base. He was noted to be hypoxic sats 88% on room air on arrival to the ER. He was placed on 2 L of oxygen sats improved to mid 90s. He was given dexamethasone 6 mg. Yesterday 01/19/2021 AST ALT were mildly elevated at 60 and 100 respectively bilirubin 0.6 alk phos 70. We will recheck hepatic function today in order to administer remdesivir. He will be admitted inpatient for acute hypoxic respiratory failure secondary to COVID-19, possible CAP. PCP, Ashley CABAN Headache Pain Score (Numeric/FACES): 2 - Related Data Allergies/Adverse Reactions: Allergies Allergy/AdvReac Type Severity Reaction Status Date / Time erythromycin base Allergy Rash Verified 01/20/21 08:27 penicillin Allergy Rash Verified 01/20/21 08:27 Home Medications: Home Meds Losartan [Cozaar] 25 mg PO DAILY 01/15/21 [History] atorvaSTATin Calcium [Atorvastatin Calcium] 40 mg PO DAILY 01/15/21 [History] Past Medical History HEENT History: Reports: None Cardiovascular History: Reports: High Cholesterol. Denies: Afib, Blood Clots/VTE/DVT, CAD, Hypertension Respiratory History: Reports: None. Denies: Asthma, COPD, Sleep Apnea Gastrointestinal History: Reports: GERD Other Genitourinary History: Enlarged kidney filter-takes losartan Musculoskeletal History: Reports: Back Pain, Chronic (Feet have chronic neuropathy) Neurological History: Reports: Neuropathy, Peripheral, Other (See Below) Other Neuro History: HERNIATED DISC. Psychiatric History: Reports: None Endocrine/Metabolic History: Reports: None. Denies: Diabetes, Type II, Obesity/BMI 30+ Hematologic History: Reports: None Immunologic History: Reports: None Oncologic (Cancer) History: Reports: None Dermatologic History: Reports: None - Infectious Disease History Infectious Disease History: Reports: Chicken Pox - Past Surgical History Head Surgeries/Procedures: Reports: None GI Surgical History: Reports: Hernia, Inguinal Neurological Surgical History: Reports: Other (See Below) (Discectomy in April 2020) Other Neurological Surgeries/Procedures: Back surgery Musculoskeletal Surgical History: Reports: Arthroscopic Knee, Other (See Below) Other Musculoskeletal Surgeries/Procedures:: HERNIATED DISK Social & Family History - Family History Family Medical History: No Pertinent Family History - Tobacco Use Tobacco Use Status *Q: Never Tobacco User - Caffeine Use Caffeine Use: Reports: Coffee - Alcohol Use Alcohol Use Frequency: Rarely, Socially - Recreational Drug Use Recreational Drug Use: No - Living Situation & Occupation Living situation: Reports: Occupation: Employed H&P Review of Systems - Review of Systems: Review Of Systems: See Below General: Reports: Fever, Chills, Malaise, Fatigue HEENT: Reports: Headaches, Sinus Congestion, Sore Throat. Denies: Eye Pain, Hearing Changes, Visual Changes Pulmonary: Reports: Shortness of Breath, Pleuritic Chest Pain, Cough. Denies: Sputum, Hemoptysis Cardiovascular: Reports: Dyspnea on Exertion. Denies: Chest Pain, Lightheadedness Gastrointestinal: Reports: Decreased Appetite. Denies: Abdominal Pain, Nausea, Vomiting Genitourinary: Reports: No Symptoms. Denies: Dysuria, Frequency Musculoskeletal: Reports: No Symptoms. Denies: Neck Pain Skin: Reports: No Symptoms. Denies: Erythema Psychiatric: Reports: No Symptoms Neurological: Reports: No Symptoms Hematologic/Lymphatic: Reports: No Symptoms Immunologic: Reports: No Symptoms Exam - Exam Exam: See Below - Vital Signs Vital Signs: Last Vital Signs Temp 98.3 F 01/20/21 10:22 Pulse 86 01/20/21 10:22 Resp 16 01/20/21 10:22 BP 126/70 01/20/21 10:22 Pulse Ox 90 L 01/20/21 10:22 Weight: 86.183 kg - Exam Quality Assessment: Supplemental Oxygen (2 L), DVT Prophylaxis (Lovenox) General: Alert, Oriented, Cooperative HEENT: Conjunctiva Clear, Mucosa Moist & [place], Posterior Pharynx Clear Neck: Supple. No: Lymphadenopathy Lungs: Decreased Breath Sounds, Crackles (Fine crackles bibasilar) Cardiovascular: Regular Rate, Regular Rhythm. No: Tachycardia, Systolic Murmur GI/Abdominal Exam: Normal Bowel Sounds, Soft, Non-Tender Back Exam: Normal Inspection, Full Range of Motion Extremities: Normal Inspection, Normal Range of Motion, Non-Tender, No Pedal Edema Skin: Warm, Dry Neurological: Cranial Nerves Intact Neuro Extensive - Mental Status: Alert, Oriented x3, Normal Mood/Affect Neuro Extensive - Motor, Sensory, Reflexes: CN II-XII Intact, Normal Gait Psychiatric: Alert, Normal Affect, Normal Mood - Patient Data Lab Results Last 24 hrs: Laboratory Results - last 24 hr 01/20/21 01/20/21 01/20/21 Range/Units 08:46 08:46 08:46 WBC 11.84 H (4.0-11.0) K/uL RBC 4.20 L (4.50-5.90) M/uL Hgb 13.2 (13.0-17.0) g/dL Hct 38.1 (38.0-50.0) % MCV 90.7 (80.0-98.0) fL MCH 31.4 (27.0-32.0) pg MCHC 34.6 (31.0-37.0) g/dL RDW Std Deviation 43.4 (28.0-62.0) fl RDW Coeff of Theo 13 (11.0-15.0) % Plt Count 289 (150-400) K/uL MPV 9.40 (7.40-12.00) fL Neut % (Auto) 88.6 H (48.0-80.0) % Lymph % (Auto) 5.7 L (16.0-40.0) % [place] % (Auto) 5.6 (0.0-15.0) % Eos % (Auto) 0.0 (0.0-7.0) % Baso % (Auto) 0.1 (0.0-1.5) % Neut # (Auto) 10.5 H (1.4-5.7) K/uL Lymph # (Auto) 0.7 (0.6-2.4) K/uL [place] # (Auto) 0.7 (0.0-0.8) K/uL Eos # (Auto) 0.0 (0.0-0.7) K/uL Baso # (Auto) 0.0 (0.0-0.1) K/uL Nucleated RBC % 0.0 /100WBC Nucleated RBCs # 0 K/uL Sodium 132 L (136-148) mmol/L Potassium 4.3 (3.5-5.1) mmol/L Chloride 96 L (98-107) mmol/L Carbon Dioxide 27.2 (21.0-32.0) mmol/L BUN 16 (7.0-18.0) mg/dL Creatinine 1.5 H (0.8-1.3) mg/dL Est Cr Clr Drug Dosing 67.63 mL/min Estimated GFR (MDRD) 51.1 ml/min Glucose 130 H (74-106) mg/dL Calcium 8.9 (8.5-10.1) mg/dL Total Bilirubin 0.5 (0.2-1.0) mg/dL Direct Bilirubin 0.10 (0.0-0.5) mg/dL Indirect Bilirubin 0.40 AST 65 H (15-37) IU/L ALT 97 H (14-63) IU/L Alkaline Phosphatase 72 (46-116) U/L Total Protein 7.8 (6.4-8.2) g/dL Albumin 2.8 L (3.4-5.0) g/dL Globulin 5.0 H (2.6-4.0) g/dL Albumin/Globulin Ratio 0.6 L (0.9-1.6) Result Diagrams: 01/20/21 08:46 01/20/21 08:46 Sepsis Event Note - Evaluation Sepsis Screening Result: No Definite Risk - Focused Exam Vital Signs: Vital Signs Temp Pulse Resp BP BP Pulse Ox 01/20/21 10:22 98.3 F 86 16 126/70 90 L 01/20/21 09:26 81 17 121/77 97 01/20/21 08:56 83 18 129/86 96 01/20/21 08:28 96.7 F L 89 17 126/81 94 L - Problem List (1) Acute respiratory failure with hypoxia SNOMED Code(s): 70316478, 544039217 ICD Code: J96.01 - ACUTE RESPIRATORY FAILURE WITH HYPOXIA Status: Acute Current Visit: Yes (2) COVID-19 SNOMED Code(s): 526158329 ICD Code: U07.1 - COVID-19 Status: Acute Current Visit: Yes (3) CAP (community acquired pneumonia) SNOMED Code(s): 490405503 ICD Code: J18.9 - PNEUMONIA, UNSPECIFIED ORGANISM Status: Acute Current Visit: Yes Qualifiers: Laterality: right Lung location: middle lobe of lung Qualified Code(s): J18.9 - Pneumonia, unspecified organism (4) Transaminitis SNOMED Code(s): 499602226, 020996503 ICD Code: R74.01 - ELEVATION OF LEVELS OF LIVER TRANSAMINASE LEVELS Status: Acute Current Visit: Yes (5) HLD (hyperlipidemia) SNOMED Code(s): 62687466 ICD Code: E78.5 - HYPERLIPIDEMIA, UNSPECIFIED Status: Chronic Current Visit: Yes (6) History of lumbar discectomy SNOMED Code(s): 93095951315467142 ICD Code: Z98.890 - OTHER SPECIFIED POSTPROCEDURAL STATES Status: Chronic Current Visit: Yes Problem List Initiated/Reviewed/Updated: Yes Orders Last 24hrs: Active Orders 24 hr Category Date Time Status Patient Status [ADT] Routine ADT 01/20/21 09:42 Active Communication Order [RC] ROUTINE Care 01/20/21 10:51 Ordered Intake and Output [RC] QSHIFT Care 01/20/21 10:45 Ordered May Shower [RC] ASDIRECTED Care 01/20/21 10:44 Ordered Oxygen Therapy [RC] PRN Care 01/20/21 10:44 Ordered RT Incentive Spirometry [RC] Q1HWA Care 01/20/21 10:50 Ordered RT Post Treatment Assessment [RC] Click to Edit Care 01/20/21 10:50 Ordered RT Pre-Treatment Assessment [RC] Click to Edit Care 01/20/21 10:50 Ordered Up With Assistance [RC] ASDIRECTED Care 01/20/21 10:44 Ordered VTE/DVT Education [RC] PER UNIT ROUTINE Care 01/20/21 10:44 Ordered Vital Signs [RC] Q4H Care 01/20/21 10:44 Ordered Regular Diet [DIET] Diet 01/20/21 Lunch Ordered CBC WITH AUTO DIFF [HEME] AM Lab 01/21/21 05:11 Ordered CBC WITH AUTO DIFF [HEME] AM Lab 01/22/21 05:11 Ordered CBC WITH AUTO DIFF [HEME] AM Lab 01/23/21 05:11 Ordered CBC WITH AUTO DIFF [HEME] AM Lab 01/24/21 05:11 Ordered CBC WITH AUTO DIFF [HEME] AM Lab 01/25/21 05:11 Ordered COMPREHENSIVE METABOLIC PN,CMP [CHEM] AM Lab 01/21/21 05:11 Ordered COMPREHENSIVE METABOLIC PN,CMP [CHEM] AM Lab 01/22/21 05:11 Ordered COMPREHENSIVE METABOLIC PN,CMP [CHEM] AM Lab 01/23/21 05:11 Ordered COMPREHENSIVE METABOLIC PN,CMP [CHEM] AM Lab 01/24/21 05:11 Ordered COMPREHENSIVE METABOLIC PN,CMP [CHEM] AM Lab 01/25/21 05:11 Ordered MAGNESIUM [CHEM] AM Lab 01/21/21 05:11 Ordered MAGNESIUM [CHEM] AM Lab 01/22/21 05:11 Ordered MAGNESIUM [CHEM] AM Lab 01/23/21 05:11 Ordered MAGNESIUM [CHEM] AM Lab 01/24/21 05:11 Ordered MAGNESIUM [CHEM] AM Lab 01/25/21 05:11 Ordered Acetaminophen [TylenoL] Med 01/20/21 10:44 Ordered 650 mg PO Q4H PRN Albuterol/Ipratropium [Combivent Respimat] Med 01/20/21 12:00 Ordered See Dose Instructions INH QID Docusate Sodium [Colace] Med 01/20/21 10:44 Ordered 100 mg PO BID PRN Enoxaparin [Lovenox] Med 01/20/21 10:45 Ordered 40 mg SUBCUT Q24H Levofloxacin/Dextrose 5%-Water [Levaquin in D5W 750 MG/ Med 01/20/21 11:00 Ordered 150 ML] 750 mg Premix Bag 1 bag IV Q24H Losartan Med 01/21/21 09:00 Ordered 25 mg PO DAILY Ondansetron [Zofran] Med 01/20/21 10:44 Ordered 4 mg IVPUSH Q4H PRN Pantoprazole [ProTONIX IV] 40 mg Med 01/20/21 10:44 Ordered Sodium Chloride 0.9% [Normal Saline] 10 ml IV ONETIME Pantoprazole [ProTONIX] Med 01/21/21 07:30 Ordered 40 mg PO ACBREAKFAST Remdesivir 100 mg Med 01/21/21 11:00 Ordered Sodium Chloride 0.9% [Normal Saline] 100 ml IV Q24H Remdesivir 200 mg Med 01/20/21 10:48 Ordered Sodium Chloride 0.9% [Normal Saline] 250 ml IV ONETIME Sodium Chloride 0.9% [Saline Flush] Med 01/20/21 10:44 Ordered 2.5 ml FLUSH ASDIRECTED PRN atorvaSTATin [Lipitor] Med 01/21/21 09:00 Ordered 40 mg PO DAILY dexAMETHasone Med 01/21/21 09:00 Ordered 6 mg PO DAILY RT Acapella [RESPCARE] Routine Oth 01/20/21 10:50 Ordered Saline Lock Insert [OM.PC] Routine Oth 01/20/21 10:44 Ordered Resuscitation Status Routine Resus Stat 01/20/21 10:44 Ordered Medication Orders Acetaminophen (Tylenol) 650 mg PO Q4H PRN PRN Reason: Pain (Mild 1-3)/fever Albuterol/Ipratropium (Combivent Respimat) 0 gm INH QID FAVI[facility] Atorvastatin Calcium (Lipitor) 40 mg PO DAILY [facility] Dexamethasone (Dexamethasone) 6 mg PO DAILY [facility] Docusate Sodium (Colace) 100 mg PO BID PRN PRN Reason: Constipation Enoxaparin Sodium (Lovenox) 40 mg SUBCUT Q24H [facility] Pantoprazole Sodium 40 mg/ (Sodium Chloride) 10 mls @ 300 mls/hr IV ONETIME ONE Stop: 01/20/21 10:45 Levofloxacin/Dextrose 750 mg/ (Premix) 150 mls @ 100 mls/hr IV Q24H [facility] Remdesivir 200 mg/ Sodium (Chloride) 250 mls @ 250 mls/hr IV ONETIME ONE Stop: 01/20/21 10:49 Remdesivir 100 mg/ Sodium (Chloride) 100 mls @ 100 mls/hr IV Q24H [facility] Stop: 01/24/21 11:59 Non-Formulary Medication (Losartan) 25 mg PO DAILY [facility] Ondansetron HCl (Zofran) 4 mg IVPUSH Q4H PRN PRN Reason: Nausea Pantoprazole Sodium (Protonix) 40 mg PO ACBREAKFAST [facility] Sodium Chloride (Saline Flush) 2.5 ml FLUSH ASDIRECTED PRN PRN Reason: Keep Vein Open Assessment/Plan Comment:: This 45-year-old male admitted with acute hypoxic respiratory failure, COVID-19, possible CAP, and transaminitis 1. Acute hypoxic respiratory failure/COVID-19/CAP -Discussed use of remdesivir, patient agrees. We will start 200 mg x 1 dose today followed by 100 mg daily x4 days -Continue dexamethasone 6 mg p.o. daily -Combivent inhaler 4 times daily scheduled for now -Encouraged I-S, Acapella and proning -We will start Levaquin 750 mg IV daily for possible CAP -Lovenox 40 subcu daily -Monitor transaminitis with remdesivir administration -Oxygen keep sats greater than 92% wean as possible 2. Transaminitis -Has been taking Tylenol very frequently last week. -We will monitor daily with remdesivir dosing -no abdominal pain -Hold statin for now VTE prophylaxis: Lovenox GI prophylaxis: Protonix CODE STATUS: Full code Dispo: 2 to 3 days pending improvement
[2021-01-20] MEDS ORDERED: Docusate Sodium 100 MG Cap PO PRN (11:30)
[2021-01-20] MEDS ORDERED: Pantoprazole 40 MG in Sodium Chloride 0.9% 10 ML IV ONE (12:00)
[2021-01-20] MEDS ORDERED: REMDESIVIR 200 MG in Sodium Chloride 0.9% 250 ML IV ONE ×2 (12:00→14:00)
[2021-01-20] MEDS: Albuterol/Ipratropium 4 GM Inhalation Spray INH SCH ×3 (12:16→23:34)
[2021-01-20] MEDS: Levofloxacin/Dextrose 5%-Water 750 MG in Premix Bag 1 BAG IV SCH (12:21)
[2021-01-20] MEDS: Enoxaparin 40 MG/0.4 ML Syringe SUBCUT SCH (12:31)
[2021-01-20] MEDS: Acetaminophen 325 MG Tab PO PRN ×3 (12:32→23:43)
[2021-01-21] MEDS: Albuterol/Ipratropium 4 GM Inhalation Spray INH SCH ×5 (06:46→23:58)
[2021-01-21] MEDS: Pantoprazole 40 MG Tab.CR PO SCH (06:46)
[2021-01-21 06:53] LABS: POTASSIUM,K 4.8 mmol/L (3.5-5.1)
[2021-01-21 07:15] LABS: CARBON DIOXIDE,CO2 25.7 mmol/L (21.0-32.0)
[2021-01-21] MEDS ORDERED: atorvaSTATin 40 MG Tab PO SCH (09:00)
[2021-01-21] MEDS: Acetaminophen 325 MG Tab PO PRN ×3 (09:41→20:13)
[2021-01-21] MEDS: Losartan 50 MG Tab PO SCH ×2 (10:09→10:15)
[2021-01-21] MEDS: Sodium Chloride 0.9% 2.5 ML Syringe FLUSH PRN ×2 (12:07→20:14)
[2021-01-21] MEDS: Dexamethasone 4 MG Tab PO SCH (12:07)
[2021-01-21] MEDS: Enoxaparin 40 MG/0.4 ML Syringe SUBCUT SCH (12:08)
[2021-01-21] MEDS: Levofloxacin/Dextrose 5%-Water 750 MG in Premix Bag 1 BAG IV SCH (12:09)
--- NOTE | 2021-01-21 13:08 | PCM.PN ---
- General Info Date of Service: 01/21/21 Subjective Update: Reports breathing has improved since yesterday and less cough. He has been eating better as well. - Patient Data Vitals - Most Recent: Last Vital Signs Temp 36.2 C 01/21/21 12:01 Pulse 66 01/21/21 12:01 Resp 14 01/21/21 12:01 BP 131/75 01/21/21 12:01 Pulse Ox 94 L 01/21/21 12:01 Weight - Most Recent: 86.727 kg I&O - Last 24 Hours: Intake & Output 01/20/21 01/21/21 01/21/21 22:59 06:59 14:59 Intake Total 2190 1000 Output Total 650 1700 Balance 1540 -700 Lab Results Last 24 Hours: Laboratory Results - last 24 hr 01/21/21 01/21/21 Range/Units 06:07 06:07 WBC 14.37 H (4.0-11.0) K/uL RBC 4.19 L (4.50-5.90) M/uL Hgb 13.0 (13.0-17.0) g/dL Hct 38.1 (38.0-50.0) % MCV 90.9 (80.0-98.0) fL MCH 31.0 (27.0-32.0) pg MCHC 34.1 (31.0-37.0) g/dL RDW Std Deviation 44.1 (28.0-62.0) fl RDW Coeff of Theo 13 (11.0-15.0) % Plt Count 370 (150-400) K/uL MPV 9.70 (7.40-12.00) fL Neut % (Auto) 87.9 H (48.0-80.0) % Lymph % (Auto) 5.9 L (16.0-40.0) % [place] % (Auto) 6.1 (0.0-15.0) % Eos % (Auto) 0.0 (0.0-7.0) % Baso % (Auto) 0.1 (0.0-1.5) % Neut # (Auto) 12.6 H (1.4-5.7) K/uL Lymph # (Auto) 0.9 (0.6-2.4) K/uL [place] # (Auto) 0.9 H (0.0-0.8) K/uL Eos # (Auto) 0.0 (0.0-0.7) K/uL Baso # (Auto) 0.0 (0.0-0.1) K/uL Nucleated RBC % 0.0 /100WBC Nucleated RBCs # 0 K/uL Sodium 134 L (136-148) mmol/L Potassium 4.8 (3.5-5.1) mmol/L Chloride 97 L (98-107) mmol/L Carbon Dioxide 25.7 (21.0-32.0) mmol/L BUN 23 H (7.0-18.0) mg/dL Creatinine 1.6 H (0.8-1.3) mg/dL Est Cr Clr Drug Dosing 63.40 mL/min Estimated GFR (MDRD) 47.4 ml/min Glucose 153 H (74-106) mg/dL Calcium 9.3 (8.5-10.1) mg/dL Magnesium 2.2 (1.8-2.4) mg/dL Total Bilirubin 0.3 (0.2-1.0) mg/dL AST 92 H (15-37) IU/L ALT 134 H (14-63) IU/L Alkaline Phosphatase 79 (46-116) U/L Total Protein 7.8 (6.4-8.2) g/dL Albumin 2.7 L (3.4-5.0) g/dL Globulin 5.1 H (2.6-4.0) g/dL Albumin/Globulin Ratio 0.5 L (0.9-1.6) Med Orders - Current: Current Medications Acetaminophen (Tylenol) 650 mg PO Q4H PRN PRN Reason: Pain (Mild 1-3)/fever Last Admin: 01/21/21 09:41 Dose: 650 mg Documented by: Albuterol/Ipratropium (Combivent Respimat) 0 gm INH QID [facility] Last Admin: 01/21/21 10:27 Dose: 1 puff Documented by: Dexamethasone (Dexamethasone) 6 mg PO DAILY@1200 [facility] Last Admin: 01/21/21 12:07 Dose: 6 mg Documented by: Docusate Sodium (Colace) 100 mg PO BID PRN PRN Reason: Constipation Enoxaparin Sodium (Lovenox) 40 mg SUBCUT Q24H [facility] Last Admin: 01/21/21 12:08 Dose: 40 mg Documented by: Levofloxacin/Dextrose 750 mg/ (Premix) 150 mls @ 100 mls/hr IV Q24H [facility] Last Admin: 01/21/21 12:09 Dose: 100 mls/hr Documented by: Remdesivir 100 mg/ Sodium (Chloride) 100 mls @ 100 mls/hr IV Q24H [facility] Stop: 01/24/21 14:59 Losartan Potassium (Cozaar) 12.5 mg PO DAILY [facility] Last Admin: 01/21/21 10:15 Dose: 12.5 mg Documented by: Ondansetron HCl (Zofran) 4 mg IVPUSH Q4H PRN PRN Reason: Nausea Pantoprazole Sodium (Protonix) 40 mg PO ACBREAKFAST [facility] Last Admin: 01/21/21 06:46 Dose: 40 mg Documented by: Sodium Chloride (Saline Flush) 2.5 ml FLUSH ASDIRECTED PRN PRN Reason: Keep Vein Open Last Admin: 01/21/21 12:07 Dose: 2.5 ml Documented by: Discontinued Medications Atorvastatin Calcium (Lipitor) 40 mg PO DAILY [facility] Dexamethasone (Decadron) 6 mg IVPUSH ONETIME ONE Stop: 01/20/21 08:38 Last Admin: 01/20/21 08:50 Dose: 6 mg Documented by: Pantoprazole Sodium 40 mg/ (Sodium Chloride) 10 mls @ 300 mls/hr IV ONETIME ONE Stop: 01/20/21 12:01 Last Admin: 01/20/21 12:31 Dose: 300 mls/hr Documented by: Remdesivir 200 mg/ Sodium (Chloride) 250 mls @ 250 mls/hr IV ONETIME ONE Stop: 01/20/21 12:59 Last Admin: 01/20/21 14:18 Dose: Not Given Documented by: Remdesivir 200 mg/ Sodium (Chloride) 250 mls @ 250 mls/hr IV ONETIME ONE Stop: 01/20/21 14:59 Last Admin: 01/20/21 14:12 Dose: 250 mls/hr Documented by: - Exam General: Alert, Oriented, Cooperative, No Acute Distress Lungs: Clear to Auscultation, Normal Respiratory Effort Cardiovascular: Regular Rate, Regular Rhythm GI/Abdominal Exam: Normal Bowel Sounds, Soft, Non-Tender, No Distention Extremities: Normal Inspection, No Pedal Edema - Patient Data Lab Results Last 24 hrs: Laboratory Results - last 24 hr 01/21/21 01/21/21 Range/Units 06:07 06:07 WBC 14.37 H (4.0-11.0) K/uL RBC 4.19 L (4.50-5.90) M/uL Hgb 13.0 (13.0-17.0) g/dL Hct 38.1 (38.0-50.0) % MCV 90.9 (80.0-98.0) fL MCH 31.0 (27.0-32.0) pg MCHC 34.1 (31.0-37.0) g/dL RDW Std Deviation 44.1 (28.0-62.0) fl RDW Coeff of Theo 13 (11.0-15.0) % Plt Count 370 (150-400) K/uL MPV 9.70 (7.40-12.00) fL Neut % (Auto) 87.9 H (48.0-80.0) % Lymph % (Auto) 5.9 L (16.0-40.0) % [place] % (Auto) 6.1 (0.0-15.0) % Eos % (Auto) 0.0 (0.0-7.0) % Baso % (Auto) 0.1 (0.0-1.5) % Neut # (Auto) 12.6 H (1.4-5.7) K/uL Lymph # (Auto) 0.9 (0.6-2.4) K/uL [place] # (Auto) 0.9 H (0.0-0.8) K/uL Eos # (Auto) 0.0 (0.0-0.7) K/uL Baso # (Auto) 0.0 (0.0-0.1) K/uL Nucleated RBC % 0.0 /100WBC Nucleated RBCs # 0 K/uL Sodium 134 L (136-148) mmol/L Potassium 4.8 (3.5-5.1) mmol/L Chloride 97 L (98-107) mmol/L Carbon Dioxide 25.7 (21.0-32.0) mmol/L BUN 23 H (7.0-18.0) mg/dL Creatinine 1.6 H (0.8-1.3) mg/dL Est Cr Clr Drug Dosing 63.40 mL/min Estimated GFR (MDRD) 47.4 ml/min Glucose 153 H (74-106) mg/dL Calcium 9.3 (8.5-10.1) mg/dL Magnesium 2.2 (1.8-2.4) mg/dL Total Bilirubin 0.3 (0.2-1.0) mg/dL AST 92 H (15-37) IU/L ALT 134 H (14-63) IU/L Alkaline Phosphatase 79 (46-116) U/L Total Protein 7.8 (6.4-8.2) g/dL Albumin 2.7 L (3.4-5.0) g/dL Globulin 5.1 H (2.6-4.0) g/dL Albumin/Globulin Ratio 0.5 L (0.9-1.6) Result Diagrams: 01/21/21 06:07 01/21/21 06:07 Sepsis Event Note - Evaluation Sepsis Screening Result: No Definite Risk - Focused Exam Vital Signs: Vital Signs Temp Temp Pulse Resp BP BP Pulse Ox 01/21/21 12:01 36.2 C 66 14 131/75 94 L 01/21/21 10:15 126/70 01/21/21 10:09 126/70 01/21/21 09:41 36.3 C 01/21/21 09:20 36.3 C 81 14 126/70 90 L 01/21/21 03:55 91 L 01/21/21 03:52 36.7 C 88 18 119/66 84 L - Problem List & Annotations (1) Acute respiratory failure with hypoxia SNOMED Code(s): 58946191, 887373731 Code(s): J96.01 - ACUTE RESPIRATORY FAILURE WITH HYPOXIA Status: Acute Current Visit: Yes (2) CAP (community acquired pneumonia) SNOMED Code(s): 861976783 Code(s): J18.9 - PNEUMONIA, UNSPECIFIED ORGANISM Status: Acute Current Visit: Yes Qualifiers: Laterality: right Lung location: middle lobe of lung Qualified Code(s): J18.9 - Pneumonia, unspecified organism (3) COVID-19 SNOMED Code(s): 593774065 Code(s): U07.1 - COVID-19 Status: Acute Current Visit: Yes (4) Transaminitis SNOMED Code(s): 290353213, 767346418 Code(s): R74.01 - ELEVATION OF LEVELS OF LIVER TRANSAMINASE LEVELS Status: Acute Current Visit: Yes (5) CKD (chronic kidney disease) SNOMED Code(s): 221803069 Code(s): N18.9 - CHRONIC KIDNEY DISEASE, UNSPECIFIED Status: Acute Current Visit: Yes (6) COVID-19 virus infection SNOMED Code(s): 486989228 Code(s): U07.1 - COVID-19 Status: Acute Current Visit: No - Problem List Review Problem List Initiated/Reviewed/Updated: Yes - Plan Plan:: Assessment and Plan: 1. Acute hypoxic respiratory failure secondary to COVID-19 pneumonia and CAP: - Continue supplemental oxygen prn to maintain O2 sat > 92%, Combivent q4 [facility], dexamethasone 6 mg qd, Remdesivir and levaquin. Continue IS and acapella. 2. Transaminitis: - Will continue to monitor. History of frequently tylenol use over the past week. 3. DVT prophylaxis: - Lovenox 40 mg subcut qd. 4. GI prophylaxis: - Pantoprazole 40 mg qd.
[2021-01-21] MEDS: REMDESIVIR 100 MG in Sodium Chloride 0.9% 100 ML IV SCH (14:13)
[2021-01-22] MEDS: Albuterol/Ipratropium 4 GM Inhalation Spray INH SCH ×3 (05:42→17:13)
[2021-01-22 07:18] LABS: CARBON DIOXIDE,CO2 23.8 mmol/L (21.0-32.0); POTASSIUM,K 4.9 mmol/L (3.5-5.1)
--- NOTE | 2021-01-22 08:05 | PCM.PN ---
- General Info Date of Service: 01/22/21 Admission Dx/Problem (Free Text): Admission Diagnosis/Problem Admission Diagnosis/Problem Hypoxia Subjective Update: Reports he is seen improvement daily. Denies any chest pain. Reports shortness of breath has improved. Continues to need 1.5 L of oxygen continuously. Reports intermittent coughing but this is also improved. He is eating and drinking well urinating. He reports that diarrhea has continued to improve and is more of an like a normal stool as of last night. Denies any abdominal pain. Using I-S and Acapella along with proning regularly. Functional Status: Reports: Pain Controlled, Tolerating Diet, Ambulating, Urinating - Review of Systems General: Reports: Malaise (But continues to improve daily.) HEENT: Reports: Sinus Congestion. Denies: Headaches, Sore Throat, Visual Changes Pulmonary: Reports: Shortness of Breath (Continues to improve), Cough. Denies: Sputum, Hemoptysis, Wheezing Cardiovascular: Reports: No Symptoms. Denies: Chest Pain, Lightheadedness Gastrointestinal: Reports: No Symptoms. Denies: Abdominal Pain, Nausea, Vomiting Genitourinary: Reports: No Symptoms. Denies: Dysuria, Frequency Musculoskeletal: Reports: No Symptoms Skin: Reports: No Symptoms Neurological: Reports: No Symptoms Psychiatric: Reports: No Symptoms - Patient Data Vitals - Most Recent: Last Vital Signs Temp 97.9 F 01/22/21 04:20 Pulse 84 01/22/21 04:20 Resp 17 01/22/21 04:20 BP 132/78 01/22/21 04:20 Pulse Ox 91 L 01/22/21 04:20 Weight - Most Recent: 86.727 kg I&O - Last 24 Hours: Intake & Output 01/21/21 01/22/21 01/22/21 22:59 06:59 14:59 Intake Total 1895 800 Output Total 0177 3665 Balance 20 -475 Lab Results Last 24 Hours: Laboratory Results - last 24 hr 01/22/21 01/22/21 Range/Units 06:05 06:05 WBC 13.29 H (4.0-11.0) K/uL RBC 4.21 L (4.50-5.90) M/uL Hgb 13.0 (13.0-17.0) g/dL Hct 38.3 (38.0-50.0) % MCV 91.0 (80.0-98.0) fL MCH 30.9 (27.0-32.0) pg MCHC 33.9 (31.0-37.0) g/dL RDW Std Deviation 44.2 (28.0-62.0) fl RDW Coeff of Theo 13 (11.0-15.0) % Plt Count 470 H (150-400) K/uL MPV 9.90 (7.40-12.00) fL Neut % (Auto) 87.7 H (48.0-80.0) % Lymph % (Auto) 6.6 L (16.0-40.0) % [place] % (Auto) 5.6 (0.0-15.0) % Eos % (Auto) 0.0 (0.0-7.0) % Baso % (Auto) 0.1 (0.0-1.5) % Neut # (Auto) 11.7 H (1.4-5.7) K/uL Lymph # (Auto) 0.9 (0.6-2.4) K/uL [place] # (Auto) 0.7 (0.0-0.8) K/uL Eos # (Auto) 0.0 (0.0-0.7) K/uL Baso # (Auto) 0.0 (0.0-0.1) K/uL Nucleated RBC % 0.0 /100WBC Nucleated RBCs # 0 K/uL Sodium 135 L (136-148) mmol/L Potassium 4.9 (3.5-5.1) mmol/L Chloride 99 (98-107) mmol/L Carbon Dioxide 23.8 (21.0-32.0) mmol/L BUN 34 H (7.0-18.0) mg/dL Creatinine 1.5 H (0.8-1.3) mg/dL Est Cr Clr Drug Dosing 67.63 mL/min Estimated GFR (MDRD) 51.1 ml/min Glucose 168 H (74-106) mg/dL Calcium 9.5 (8.5-10.1) mg/dL Magnesium 2.4 (1.8-2.4) mg/dL Total Bilirubin 0.3 (0.2-1.0) mg/dL AST 58 H (15-37) IU/L ALT 137 H (14-63) IU/L Alkaline Phosphatase 75 (46-116) U/L Total Protein 7.7 (6.4-8.2) g/dL Albumin 2.7 L (3.4-5.0) g/dL Globulin 5.0 H (2.6-4.0) g/dL Albumin/Globulin Ratio 0.5 L (0.9-1.6) Med Orders - Current: Current Medications Acetaminophen (Tylenol) 650 mg PO Q4H PRN PRN Reason: Pain (Mild 1-3)/fever Last Admin: 01/21/21 20:13 Dose: 650 mg Documented by: Albuterol/Ipratropium (Combivent Respimat) 0 gm INH QID [facility] Last Admin: 01/22/21 05:42 Dose: 1 puff Documented by: Dexamethasone (Dexamethasone) 6 mg PO DAILY@1200 [facility] Last Admin: 01/21/21 12:07 Dose: 6 mg Documented by: Docusate Sodium (Colace) 100 mg PO BID PRN PRN Reason: Constipation Enoxaparin Sodium (Lovenox) 40 mg SUBCUT Q24H [facility] Last Admin: 01/21/21 12:08 Dose: 40 mg Documented by: Levofloxacin/Dextrose 750 mg/ (Premix) 150 mls @ 100 mls/hr IV Q24H [facility] Last Admin: 01/21/21 12:09 Dose: 100 mls/hr Documented by: Remdesivir 100 mg/ Sodium (Chloride) 100 mls @ 100 mls/hr IV Q24H [facility] Stop: 01/24/21 14:59 Last Admin: 01/21/21 14:13 Dose: 100 mls/hr Documented by: Losartan Potassium (Cozaar) 12.5 mg PO DAILY [facility] Last Admin: 01/21/21 10:15 Dose: 12.5 mg Documented by: Ondansetron HCl (Zofran) 4 mg IVPUSH Q4H PRN PRN Reason: Nausea Pantoprazole Sodium (Protonix) 40 mg PO ACBREAKFAST [facility] Last Admin: 01/21/21 06:46 Dose: 40 mg Documented by: Sodium Chloride (Saline Flush) 2.5 ml FLUSH ASDIRECTED PRN PRN Reason: Keep Vein Open Last Admin: 01/21/21 20:14 Dose: 2.5 ml Documented by: Discontinued Medications Atorvastatin Calcium (Lipitor) 40 mg PO DAILY [facility] Dexamethasone (Decadron) 6 mg IVPUSH ONETIME ONE Stop: 01/20/21 08:38 Last Admin: 01/20/21 08:50 Dose: 6 mg Documented by: Pantoprazole Sodium 40 mg/ (Sodium Chloride) 10 mls @ 300 mls/hr IV ONETIME ONE Stop: 01/20/21 12:01 Last Admin: 01/20/21 12:31 Dose: 300 mls/hr Documented by: Remdesivir 200 mg/ Sodium (Chloride) 250 mls @ 250 mls/hr IV ONETIME ONE Stop: 01/20/21 12:59 Last Admin: 01/20/21 14:18 Dose: Not Given Documented by: Remdesivir 200 mg/ Sodium (Chloride) 250 mls @ 250 mls/hr IV ONETIME ONE Stop: 01/20/21 14:59 Last Admin: 01/20/21 14:12 Dose: 250 mls/hr Documented by: - Exam Quality Assessment: Supplemental Oxygen (1.5 L nasal cannula), DVT Prophylaxis (Lovenox) General: Alert, Oriented Neck: Supple Lungs: Normal Respiratory Effort, Crackles (Right mid and lower lobe) Cardiovascular: Regular Rate, Regular Rhythm, No Murmurs GI/Abdominal Exam: Normal Bowel Sounds, Soft, Non-Tender Back Exam: Normal Inspection, Full Range of Motion Extremities: Normal Inspection, Normal Range of Motion, Non-Tender, No Pedal Edema Skin: Warm, Dry Neurological: No New Focal Deficit Psy/Mental Status: Alert, Normal Affect, Normal Mood - Patient Data Lab Results Last 24 hrs: Laboratory Results - last 24 hr 01/22/21 01/22/21 Range/Units 06:05 06:05 WBC 13.29 H (4.0-11.0) K/uL RBC 4.21 L (4.50-5.90) M/uL Hgb 13.0 (13.0-17.0) g/dL Hct 38.3 (38.0-50.0) % MCV 91.0 (80.0-98.0) fL MCH 30.9 (27.0-32.0) pg MCHC 33.9 (31.0-37.0) g/dL RDW Std Deviation 44.2 (28.0-62.0) fl RDW Coeff of Theo 13 (11.0-15.0) % Plt Count 470 H (150-400) K/uL MPV 9.90 (7.40-12.00) fL Neut % (Auto) 87.7 H (48.0-80.0) % Lymph % (Auto) 6.6 L (16.0-40.0) % [place] % (Auto) 5.6 (0.0-15.0) % Eos % (Auto) 0.0 (0.0-7.0) % Baso % (Auto) 0.1 (0.0-1.5) % Neut # (Auto) 11.7 H (1.4-5.7) K/uL Lymph # (Auto) 0.9 (0.6-2.4) K/uL [place] # (Auto) 0.7 (0.0-0.8) K/uL Eos # (Auto) 0.0 (0.0-0.7) K/uL Baso # (Auto) 0.0 (0.0-0.1) K/uL Nucleated RBC % 0.0 /100WBC Nucleated RBCs # 0 K/uL Sodium 135 L (136-148) mmol/L Potassium 4.9 (3.5-5.1) mmol/L Chloride 99 (98-107) mmol/L Carbon Dioxide 23.8 (21.0-32.0) mmol/L BUN 34 H (7.0-18.0) mg/dL Creatinine 1.5 H (0.8-1.3) mg/dL Est Cr Clr Drug Dosing 67.63 mL/min Estimated GFR (MDRD) 51.1 ml/min Glucose 168 H (74-106) mg/dL Calcium 9.5 (8.5-10.1) mg/dL Magnesium 2.4 (1.8-2.4) mg/dL Total Bilirubin 0.3 (0.2-1.0) mg/dL AST 58 H (15-37) IU/L ALT 137 H (14-63) IU/L Alkaline Phosphatase 75 (46-116) U/L Total Protein 7.7 (6.4-8.2) g/dL Albumin 2.7 L (3.4-5.0) g/dL Globulin 5.0 H (2.6-4.0) g/dL Albumin/Globulin Ratio 0.5 L (0.9-1.6) Result Diagrams: 01/22/21 06:05 01/22/21 06:05 Sepsis Event Note - Evaluation Sepsis Screening Result: No Definite Risk - Focused Exam Vital Signs: Vital Signs Temp Pulse Resp BP BP Pulse Ox 01/22/21 04:20 97.9 F 84 17 132/78 91 L 01/21/21 23:56 98.1 F 70 15 129/66 90 L 01/21/21 20:15 97 F 72 16 133/85 91 L - Problem List & Annotations (1) Acute respiratory failure with hypoxia SNOMED Code(s): 15633477, 778256024 Code(s): J96.01 - ACUTE RESPIRATORY FAILURE WITH HYPOXIA Status: Acute Current Visit: Yes (2) COVID-19 SNOMED Code(s): 999228721 Code(s): U07.1 - COVID-19 Status: Acute Current Visit: Yes (3) CAP (community acquired pneumonia) SNOMED Code(s): 589247875 Code(s): J18.9 - PNEUMONIA, UNSPECIFIED ORGANISM Status: Acute Current Visit: Yes Qualifiers: Laterality: right Lung location: middle lobe of lung Qualified Code(s): J18.9 - Pneumonia, unspecified organism (4) Transaminitis SNOMED Code(s): 129911361, 214094945 Code(s): R74.01 - ELEVATION OF LEVELS OF LIVER TRANSAMINASE LEVELS Status: Acute Current Visit: Yes (5) HLD (hyperlipidemia) SNOMED Code(s): 61022572 Code(s): E78.5 - HYPERLIPIDEMIA, UNSPECIFIED Status: Chronic Current Visit: Yes (6) History of lumbar discectomy SNOMED Code(s): 17153385434672730 Code(s): Z98.890 - OTHER SPECIFIED POSTPROCEDURAL STATES Status: Chronic Current Visit: Yes - Problem List Review Problem List Initiated/Reviewed/Updated: Yes - My Orders Last 24 Hours: My Active Orders 01/21/21 07:30 Pantoprazole [ProTONIX] 40 mg PO ACBREAKFAST 01/21/21 09:00 Losartan [Cozaar] 12.5 mg PO DAILY 01/21/21 12:00 dexAMETHasone 6 mg PO DAILY@1200 01/21/21 14:00 Remdesivir 100 mg Sodium Chloride 0.9% [Normal Saline] 100 ml IV Q24H 01/22/21 08:04 GLYCOSYLATED HEMOGLOBIN,HGBA1C [CHEM] Routine 01/23/21 05:11 CBC WITH AUTO DIFF [HEME] AM COMPREHENSIVE METABOLIC PN,CMP [CHEM] AM MAGNESIUM [CHEM] AM 01/24/21 05:11 CBC WITH AUTO DIFF [HEME] AM COMPREHENSIVE METABOLIC PN,CMP [CHEM] AM MAGNESIUM [CHEM] AM 01/25/21 05:11 CBC WITH AUTO DIFF [HEME] AM COMPREHENSIVE METABOLIC PN,CMP [CHEM] AM MAGNESIUM [CHEM] AM - Plan Plan:: This 45-year-old male admitted with acute hypoxic respiratory failure, COVID-19, possible CAP, and transaminitis 1. Acute hypoxic respiratory failure/COVID-19/CAP -Remdesivir 100 mg daily on day 3/5 -Continue dexamethasone 6 mg p.o. daily -Combivent inhaler 4 times daily scheduled for now -Encouraged I-S, Acapella and proning -Continue Levaquin 750 mg IV daily for possible CAP -Lovenox 40 subcu daily -Monitor transaminitis with remdesivir administration -Oxygen keep sats greater than 92% wean as possible 2. Transaminitis -Has been taking Tylenol very frequently last week. -We will monitor daily with remdesivir dosing -Stable for now -Hold statin for now VTE prophylaxis: Lovenox GI prophylaxis: Protonix CODE STATUS: Full code Dispo: 2 to 3 days pending improvement
[2021-01-22] MEDS: Pantoprazole 40 MG Tab.CR PO SCH (08:10)
[2021-01-22] MEDS: Losartan 50 MG Tab PO SCH (08:20)
[2021-01-22 08:37] LABS: HEMOGLOBIN A1C 6.2 %
[2021-01-22] MEDS: Dexamethasone 4 MG Tab PO SCH (11:35)
[2021-01-22] MEDS: Enoxaparin 40 MG/0.4 ML Syringe SUBCUT SCH (11:37)
[2021-01-22] MEDS: Levofloxacin/Dextrose 5%-Water 750 MG in Premix Bag 1 BAG IV SCH (11:39)
[2021-01-22] MEDS: REMDESIVIR 100 MG in Sodium Chloride 0.9% 100 ML IV SCH (13:58)
[2021-01-23] MEDS: Albuterol/Ipratropium 4 GM Inhalation Spray INH SCH ×5 (00:04→23:50)
[2021-01-23 06:48] LABS: CARBON DIOXIDE,CO2 25.3 mmol/L (21.0-32.0); POTASSIUM,K 5.3 mmol/L (3.5-5.1)
--- NOTE | 2021-01-23 07:42 | PCM.PN ---
- General Info Date of Service: 01/23/21 Admission Dx/Problem (Free Text): Admission Diagnosis/Problem Admission Diagnosis/Problem Hypoxia Subjective Update: Doing well this morning. Continues to improve steadily each day. Report coughing is much improved. Shortness of breath continues with ambulation or exertion but again has improved. Requiring 0.5 L oxygen today. Continues to be very diligent with I-S and Acapella. Functional Status: Reports: Pain Controlled, Tolerating Diet, Ambulating, Urinating - Review of Systems General: Reports: No Symptoms. Denies: Weakness, Fatigue HEENT: Reports: No Symptoms. Denies: Headaches, Sore Throat Pulmonary: Reports: No Symptoms. Denies: Shortness of Breath Cardiovascular: Reports: No Symptoms. Denies: Dyspnea on Exertion Gastrointestinal: Reports: No Symptoms. Denies: Abdominal Pain, Nausea, Vomiting Genitourinary: Reports: No Symptoms. Denies: Dysuria, Frequency, Burning Musculoskeletal: Reports: No Symptoms Skin: Reports: No Symptoms Neurological: Reports: No Symptoms Psychiatric: Reports: No Symptoms - Patient Data Vitals - Most Recent: Last Vital Signs Temp 97.2 F 01/23/21 05:38 Pulse 72 01/23/21 05:38 Resp 16 01/23/21 05:38 BP 127/81 01/23/21 05:38 Pulse Ox 91 L 01/23/21 05:38 Weight - Most Recent: 86.727 kg I&O - Last 24 Hours: Intake & Output 01/22/21 01/23/21 01/23/21 22:59 06:59 14:59 Intake Total 1840 1100 Output Total 590 2150 Balance 1250 -1050 Lab Results Last 24 Hours: Laboratory Results - last 24 hr 01/22/21 01/23/21 01/23/21 Range/Units 06:05 05:40 05:40 WBC 9.43 (4.0-11.0) K/uL RBC 4.26 L (4.50-5.90) M/uL Hgb 13.2 (13.0-17.0) g/dL Hct 38.8 (38.0-50.0) % MCV 91.1 (80.0-98.0) fL MCH 31.0 (27.0-32.0) pg MCHC 34.0 (31.0-37.0) g/dL RDW Std Deviation 44.7 (28.0-62.0) fl RDW Coeff of Theo 13 (11.0-15.0) % Plt Count 483 H (150-400) K/uL MPV 9.70 (7.40-12.00) fL Neut % (Auto) 84.1 H (48.0-80.0) % Lymph % (Auto) 7.8 L (16.0-40.0) % [place] % (Auto) 8.0 (0.0-15.0) % Eos % (Auto) 0.0 (0.0-7.0) % Baso % (Auto) 0.1 (0.0-1.5) % Neut # (Auto) 7.9 H (1.4-5.7) K/uL Lymph # (Auto) 0.7 (0.6-2.4) K/uL [place] # (Auto) 0.8 (0.0-0.8) K/uL Eos # (Auto) 0.0 (0.0-0.7) K/uL Baso # (Auto) 0.0 (0.0-0.1) K/uL Nucleated RBC % 0.0 /100WBC Nucleated RBCs # 0 K/uL Sodium 135 L (136-148) mmol/L Potassium 5.3 H (3.5-5.1) mmol/L Chloride 100 (98-107) mmol/L Carbon Dioxide 25.3 (21.0-32.0) mmol/L BUN 37 H (7.0-18.0) mg/dL Creatinine 1.4 H (0.8-1.3) mg/dL Est Cr Clr Drug Dosing 72.46 mL/min Estimated GFR (MDRD) 55.3 ml/min Glucose 150 H (74-106) mg/dL Hemoglobin A1c 6.2 (4.5 - 6.2) % Calcium 9.4 (8.5-10.1) mg/dL Magnesium 2.5 H (1.8-2.4) mg/dL Total Bilirubin 0.3 (0.2-1.0) mg/dL AST 51 H (15-37) IU/L ALT 138 H (14-63) IU/L Alkaline Phosphatase 66 (46-116) U/L Total Protein 7.7 (6.4-8.2) g/dL Albumin 2.8 L (3.4-5.0) g/dL Globulin 4.9 H (2.6-4.0) g/dL Albumin/Globulin Ratio 0.6 L (0.9-1.6) Med Orders - Current: Current Medications Acetaminophen (Tylenol) 650 mg PO Q4H PRN PRN Reason: Pain (Mild 1-3)/fever Last Admin: 01/21/21 20:13 Dose: 650 mg Documented by: Albuterol/Ipratropium (Combivent Respimat) 0 gm INH QID [facility] Last Admin: 01/23/21 05:41 Dose: 1 puff Documented by: Dexamethasone (Dexamethasone) 6 mg PO DAILY@1200 [facility] Last Admin: 01/22/21 11:35 Dose: 6 mg Documented by: Docusate Sodium (Colace) 100 mg PO BID PRN PRN Reason: Constipation Enoxaparin Sodium (Lovenox) 40 mg SUBCUT Q24H [facility] Last Admin: 01/22/21 11:37 Dose: 40 mg Documented by: Levofloxacin/Dextrose 750 mg/ (Premix) 150 mls @ 100 mls/hr IV Q24H [facility] Last Admin: 01/22/21 11:39 Dose: 100 mls/hr Documented by: Remdesivir 100 mg/ Sodium (Chloride) 100 mls @ 100 mls/hr IV Q24H [facility] Stop: 01/24/21 14:59 Last Admin: 01/22/21 13:58 Dose: 100 mls/hr Documented by: Losartan Potassium (Cozaar) 12.5 mg PO DAILY [facility] Last Admin: 01/22/21 08:20 Dose: 12.5 mg Documented by: Ondansetron HCl (Zofran) 4 mg IVPUSH Q4H PRN PRN Reason: Nausea Pantoprazole Sodium (Protonix) 40 mg PO ACBREAKFAST [facility] Last Admin: 01/22/21 08:10 Dose: 40 mg Documented by: Sodium Chloride (Saline Flush) 2.5 ml FLUSH ASDIRECTED PRN PRN Reason: Keep Vein Open Last Admin: 01/21/21 20:14 Dose: 2.5 ml Documented by: Discontinued Medications Atorvastatin Calcium (Lipitor) 40 mg PO DAILY [facility] Dexamethasone (Decadron) 6 mg IVPUSH ONETIME ONE Stop: 01/20/21 08:38 Last Admin: 01/20/21 08:50 Dose: 6 mg Documented by: Pantoprazole Sodium 40 mg/ (Sodium Chloride) 10 mls @ 300 mls/hr IV ONETIME ONE Stop: 01/20/21 12:01 Last Admin: 01/20/21 12:31 Dose: 300 mls/hr Documented by: Remdesivir 200 mg/ Sodium (Chloride) 250 mls @ 250 mls/hr IV ONETIME ONE Stop: 01/20/21 12:59 Last Admin: 01/20/21 14:18 Dose: Not Given Documented by: Remdesivir 200 mg/ Sodium (Chloride) 250 mls @ 250 mls/hr IV ONETIME ONE Stop: 01/20/21 14:59 Last Admin: 01/20/21 14:12 Dose: 250 mls/hr Documented by: - Exam Quality Assessment: Supplemental Oxygen, DVT Prophylaxis General: Alert, Oriented, Cooperative, No Acute Distress Lungs: Clear to Auscultation, Normal Respiratory Effort Cardiovascular: Regular Rate, Regular Rhythm GI/Abdominal Exam: Normal Bowel Sounds, Soft, Non-Tender Extremities: Normal Inspection, Normal Range of Motion, Non-Tender, No Pedal Edema Neurological: No New Focal Deficit Psy/Mental Status: Alert, Normal Affect, Normal Mood - Patient Data Lab Results Last 24 hrs: Laboratory Results - last 24 hr 01/22/21 01/23/21 01/23/21 Range/Units 06:05 05:40 05:40 WBC 9.43 (4.0-11.0) K/uL RBC 4.26 L (4.50-5.90) M/uL Hgb 13.2 (13.0-17.0) g/dL Hct 38.8 (38.0-50.0) % MCV 91.1 (80.0-98.0) fL MCH 31.0 (27.0-32.0) pg MCHC 34.0 (31.0-37.0) g/dL RDW Std Deviation 44.7 (28.0-62.0) fl RDW Coeff of Theo 13 (11.0-15.0) % Plt Count 483 H (150-400) K/uL MPV 9.70 (7.40-12.00) fL Neut % (Auto) 84.1 H (48.0-80.0) % Lymph % (Auto) 7.8 L (16.0-40.0) % [place] % (Auto) 8.0 (0.0-15.0) % Eos % (Auto) 0.0 (0.0-7.0) % Baso % (Auto) 0.1 (0.0-1.5) % Neut # (Auto) 7.9 H (1.4-5.7) K/uL Lymph # (Auto) 0.7 (0.6-2.4) K/uL [place] # (Auto) 0.8 (0.0-0.8) K/uL Eos # (Auto) 0.0 (0.0-0.7) K/uL Baso # (Auto) 0.0 (0.0-0.1) K/uL Nucleated RBC % 0.0 /100WBC Nucleated RBCs # 0 K/uL Sodium 135 L (136-148) mmol/L Potassium 5.3 H (3.5-5.1) mmol/L Chloride 100 (98-107) mmol/L Carbon Dioxide 25.3 (21.0-32.0) mmol/L BUN 37 H (7.0-18.0) mg/dL Creatinine 1.4 H (0.8-1.3) mg/dL Est Cr Clr Drug Dosing 72.46 mL/min Estimated GFR (MDRD) 55.3 ml/min Glucose 150 H (74-106) mg/dL Hemoglobin A1c 6.2 (4.5 - 6.2) % Calcium 9.4 (8.5-10.1) mg/dL Magnesium 2.5 H (1.8-2.4) mg/dL Total Bilirubin 0.3 (0.2-1.0) mg/dL AST 51 H (15-37) IU/L ALT 138 H (14-63) IU/L Alkaline Phosphatase 66 (46-116) U/L Total Protein 7.7 (6.4-8.2) g/dL Albumin 2.8 L (3.4-5.0) g/dL Globulin 4.9 H (2.6-4.0) g/dL Albumin/Globulin Ratio 0.6 L (0.9-1.6) Result Diagrams: 01/23/21 05:40 01/23/21 05:40 Sepsis Event Note - Evaluation Sepsis Screening Result: No Definite Risk - Focused Exam Vital Signs: Vital Signs Temp Pulse Resp BP Pulse Ox 01/23/21 05:38 97.2 F 72 16 127/81 91 L 01/23/21 00:03 97.3 F 82 16 135/83 92 L 01/22/21 20:20 97.3 F 79 16 130/78 90 L - Problem List & Annotations (1) Acute respiratory failure with hypoxia SNOMED Code(s): 60761230, 044441905 Code(s): J96.01 - ACUTE RESPIRATORY FAILURE WITH HYPOXIA Status: Acute Current Visit: Yes (2) COVID-19 SNOMED Code(s): 267639149 Code(s): U07.1 - COVID-19 Status: Acute Current Visit: Yes (3) CAP (community acquired pneumonia) SNOMED Code(s): 601486001 Code(s): J18.9 - PNEUMONIA, UNSPECIFIED ORGANISM Status: Acute Current Visit: Yes Qualifiers: Laterality: right Lung location: middle lobe of lung Qualified Code(s): J18.9 - Pneumonia, unspecified organism (4) Transaminitis SNOMED Code(s): 483211846, 434934777 Code(s): R74.01 - ELEVATION OF LEVELS OF LIVER TRANSAMINASE LEVELS Status: Acute Current Visit: Yes (5) HLD (hyperlipidemia) SNOMED Code(s): 84576824 Code(s): E78.5 - HYPERLIPIDEMIA, UNSPECIFIED Status: Chronic Current Visit: Yes (6) History of lumbar discectomy SNOMED Code(s): 70272274378496971 Code(s): Z98.890 - OTHER SPECIFIED POSTPROCEDURAL STATES Status: Chronic Current Visit: Yes - Problem List Review Problem List Initiated/Reviewed/Updated: Yes - My Orders Last 24 Hours: My Active Orders 01/24/21 05:11 CBC WITH AUTO DIFF [HEME] AM COMPREHENSIVE METABOLIC PN,CMP [CHEM] AM MAGNESIUM [CHEM] AM 01/25/21 05:11 CBC WITH AUTO DIFF [HEME] AM COMPREHENSIVE METABOLIC PN,CMP [CHEM] AM MAGNESIUM [CHEM] AM - Plan Plan:: This 45-year-old male admitted with acute hypoxic respiratory failure, COVID-19, possible CAP, and transaminitis 1. Acute hypoxic respiratory failure/COVID-19/CAP - steady improvement -Remdesivir 100 mg daily on day 4/5 -Continue dexamethasone 6 mg p.o. daily -Combivent inhaler 4 times daily scheduled for now -Encouraged I-S, Acapella and proning -Continue Levaquin 750 mg IV daily for possible CAP -Change lovenox to Heparin -Monitor transaminitis with remdesivir administration -Oxygen keep sats greater than 92% wean as possible - MOnitor potassium and mag 2. Transaminitis -We will monitor daily with remdesivir dosing -Stable for now -Hold statin for now VTE prophylaxis: Lovenox GI prophylaxis: Protonix CODE STATUS: Full code Dispo: likely home in am.
[2021-01-23] MEDS: Pantoprazole 40 MG Tab.CR PO SCH (07:53)
[2021-01-23] MEDS: Losartan 50 MG Tab PO SCH (08:00)
[2021-01-23] MEDS: Dexamethasone 4 MG Tab PO SCH (12:52)
[2021-01-23] MEDS: Heparin Sodium 5,000 Units/ML Vial SUBCUT SCH ×2 (12:52→23:51)
[2021-01-23] MEDS: Levofloxacin/Dextrose 5%-Water 750 MG in Premix Bag 1 BAG IV SCH (12:53)
[2021-01-23] MEDS: REMDESIVIR 100 MG in Sodium Chloride 0.9% 100 ML IV SCH (14:59)
[2021-01-24] MEDS: Pantoprazole 40 MG Tab.CR PO SCH (06:35)
[2021-01-24] MEDS: Albuterol/Ipratropium 4 GM Inhalation Spray INH SCH ×2 (06:36→12:08)
[2021-01-24 07:39] LABS: CARBON DIOXIDE,CO2 23.1 mmol/L (21.0-32.0); POTASSIUM,K 5.1 mmol/L (3.5-5.1)
[2021-01-24] MEDS: Losartan 50 MG Tab PO SCH (08:57)
[2021-01-24] MEDS ORDERED: REMDESIVIR 100 MG in Sodium Chloride 0.9% 100 ML IV SCH (11:00)
--- NOTE | 2021-01-24 11:27 | PCM.DCSUM1 ---
<Ryan Panchal - Last Filed: 01/24/21 12:22> Discharge Summary - Hospital Course Free Text/Narrative:: 45-year-old admitted for acute hypoxic respiratory failure secondary to COVID-19 pneumonia. He has a PMH of HLD and CKD. On admission, CXR showed infiltrate in RML. COVID-19 positive. Patient was treated with supplemental oxygen, combivent, dexamethasone, Remdesivir and Levaquin. Patient improved steadily throughout his hospital course and was eventually weaned off supplemental oxygen to room air. He was able to tolerate oral food and ambulated without feeling shortness of breath. He was discharged in stable condition. - Discharge Data Discharge Date: 01/24/21 Discharge Disposition: Home, Self-Care 01 Condition: Stable - Referral to Home Health Primary Care Physician: PCP None - Discharge Diagnosis/Problem(s) (1) Acute respiratory failure with hypoxia SNOMED Code(s): 95272421, 894065194 ICD Code: J96.01 - ACUTE RESPIRATORY FAILURE WITH HYPOXIA Status: Acute (2) CAP (community acquired pneumonia) SNOMED Code(s): 352678710 ICD Code: J18.9 - PNEUMONIA, UNSPECIFIED ORGANISM Status: Acute Qualifiers: Laterality: right Lung location: middle lobe of lung Qualified Code(s): J18.9 - Pneumonia, unspecified organism (3) COVID-19 SNOMED Code(s): 909746764 ICD Code: U07.1 - COVID-19 Status: Acute (4) Transaminitis SNOMED Code(s): 193211960, 102942556 ICD Code: R74.01 - ELEVATION OF LEVELS OF LIVER TRANSAMINASE LEVELS Status: Acute (5) CKD (chronic kidney disease) SNOMED Code(s): 904409847 ICD Code: N18.9 - CHRONIC KIDNEY DISEASE, UNSPECIFIED Status: Acute (6) COVID-19 virus infection SNOMED Code(s): 519800269 ICD Code: U07.1 - COVID-19 Status: Acute - Patient Instructions Diet: Usual Diet as Tolerated Activity: As Tolerated Notify Provider of: Fever, Increased Pain, Swelling and Redness, Drainage, Nausea and/or Vomiting - Discharge Plan *PRESCRIPTION DRUG MONITORING PROGRAM REVIEWED*: Not Applicable *COPY OF PRESCRIPTION DRUG MONITORING REPORT IN PATIENT IVONNE: Not Applicable Home Medications: Home Meds Losartan [Cozaar] 12.5 mg PO DAILY 01/15/21 [History] atorvaSTATin Calcium [Atorvastatin Calcium] 40 mg PO DAILY 01/15/21 [History] Oxygen Therapy Mode: Room Air Patient Handouts: COVID-19 Frequently Asked Questions, COVID-19, Prevent the Spread of COVID-19 if You Are Sick - [facility] Forms: ED Department Discharge Referrals: Ashley Rainey PA [Physician Instrument Calibrator] - 02/09/21 10:00 am - Discharge Summary/Plan Comment DC Time >30 min.: No - Patient Data Vitals - Most Recent: Last Vital Signs Temp 36.4 C 01/24/21 04:29 Pulse 66 01/24/21 04:29 Resp 18 01/24/21 04:29 BP 119/79 01/24/21 08:57 Pulse Ox 93 L 01/24/21 04:29 Weight - Most Recent: 86.727 kg I&O - Last 24 hours: Intake & Output 01/23/21 01/24/21 01/24/21 22:59 06:59 14:59 Intake Total 1200 1200 Output Total 775 1950 Balance 425 -750 Lab Results - Last 24 hrs: Laboratory Results - last 24 hr 01/24/21 01/24/21 Range/Units 06:55 06:55 WBC 9.32 (4.0-11.0) K/uL RBC 4.32 L (4.50-5.90) M/uL Hgb 13.5 (13.0-17.0) g/dL Hct 39.2 (38.0-50.0) % MCV 90.7 (80.0-98.0) fL MCH 31.3 (27.0-32.0) pg MCHC 34.4 (31.0-37.0) g/dL RDW Std Deviation 44.6 (28.0-62.0) fl RDW Coeff of Theo 13 (11.0-15.0) % Plt Count 564 H (150-400) K/uL MPV 9.50 (7.40-12.00) fL Add Manual Diff YES Neutrophils % (Manual) 72 (48.0-80.0) % Lymphocytes % (Manual) 12 L (16.0-40.0) % Monocytes % (Manual) 12 (0.0-15.0) % Metamyelocytes % 2 % Myelocytes % 2 % Nucleated RBC % 0.0 /100WBC Absolute Seg Neuts 6.7 H (1.4-5.7) Lymphocytes # (Manual) 1.1 (0.6-2.4) Monocytes # (Manual) 1.1 H (0.0-0.8) Absolute Metamyelocyte 0.2 Absolute Myelocytes 0.2 Nucleated RBCs # 0 K/uL Sodium 134 L (136-148) mmol/L Potassium 5.1 (3.5-5.1) mmol/L Chloride 101 (98-107) mmol/L Carbon Dioxide 23.1 (21.0-32.0) mmol/L BUN 37 H (7.0-18.0) mg/dL Creatinine 1.4 H (0.8-1.3) mg/dL Est Cr Clr Drug Dosing 72.46 mL/min Estimated GFR (MDRD) 55.3 ml/min Glucose 130 H (74-106) mg/dL Calcium 9.2 (8.5-10.1) mg/dL Magnesium 2.5 H (1.8-2.4) mg/dL Total Bilirubin 0.3 (0.2-1.0) mg/dL AST 33 (15-37) IU/L ALT 121 H (14-63) IU/L Alkaline Phosphatase 64 (46-116) U/L Total Protein 7.5 (6.4-8.2) g/dL Albumin 2.8 L (3.4-5.0) g/dL Globulin 4.7 H (2.6-4.0) g/dL Albumin/Globulin Ratio 0.6 L (0.9-1.6) Med Orders - Current: Current Medications Acetaminophen (Tylenol) 650 mg PO Q4H PRN PRN Reason: Pain (Mild 1-3)/fever Last Admin: 01/21/21 20:13 Dose: 650 mg Documented by: Albuterol/Ipratropium (Combivent Respimat) 0 gm INH QID [facility] Last Admin: 01/24/21 06:36 Dose: 1 puff Documented by: Dexamethasone (Dexamethasone) 6 mg PO DAILY@1200 [facility] Last Admin: 01/23/21 12:52 Dose: 6 mg Documented by: Docusate Sodium (Colace) 100 mg PO BID PRN PRN Reason: Constipation Heparin Sodium (Porcine) (Heparin Sodium) 5,000 units SUBCUT Q12H [facility] Last Admin: 01/23/21 23:51 Dose: 5,000 units Documented by: Levofloxacin/Dextrose 750 mg/ (Premix) 150 mls @ 100 mls/hr IV Q24H [facility] Last Admin: 01/23/21 12:53 Dose: 100 mls/hr Documented by: Remdesivir 100 mg/ Sodium (Chloride) 100 mls @ 100 mls/hr IV Q24H [facility] Stop: 01/24/21 11:59 Last Admin: 01/24/21 11:16 Dose: 100 mls/hr Documented by: Losartan Potassium (Cozaar) 12.5 mg PO DAILY [facility] Last Admin: 01/24/21 08:57 Dose: 12.5 mg Documented by: Ondansetron HCl (Zofran) 4 mg IVPUSH Q4H PRN PRN Reason: Nausea Pantoprazole Sodium (Protonix) 40 mg PO ACBREAKFAST [facility] Last Admin: 01/24/21 06:35 Dose: 40 mg Documented by: Sodium Chloride (Saline Flush) 2.5 ml FLUSH ASDIRECTED PRN PRN Reason: Keep Vein Open Last Admin: 01/21/21 20:14 Dose: 2.5 ml Documented by: Discontinued Medications Atorvastatin Calcium (Lipitor) 40 mg PO DAILY [facility] Dexamethasone (Decadron) 6 mg IVPUSH ONETIME ONE Stop: 01/20/21 08:38 Last Admin: 01/20/21 08:50 Dose: 6 mg Documented by: Enoxaparin Sodium (Lovenox) 40 mg SUBCUT Q24H [facility] Last Admin: 01/22/21 11:37 Dose: 40 mg Documented by: Pantoprazole Sodium 40 mg/ (Sodium Chloride) 10 mls @ 300 mls/hr IV ONETIME ONE Stop: 01/20/21 12:01 Last Admin: 01/20/21 12:31 Dose: 300 mls/hr Documented by: Remdesivir 200 mg/ Sodium (Chloride) 250 mls @ 250 mls/hr IV ONETIME ONE Stop: 01/20/21 12:59 Last Admin: 01/20/21 14:18 Dose: Not Given Documented by: Remdesivir 100 mg/ Sodium (Chloride) 100 mls @ 100 mls/hr IV Q24H [facility] Stop: 01/24/21 14:59 Last Admin: 01/23/21 14:59 Dose: 100 mls/hr Documented by: Remdesivir 200 mg/ Sodium (Chloride) 250 mls @ 250 mls/hr IV ONETIME ONE Stop: 01/20/21 14:59 Last Admin: 01/20/21 14:12 Dose: 250 mls/hr Documented by: <Tigist Redman - Last Filed: 01/25/21 14:29> Discharge Summary - Hospital Course Free Text/Narrative:: I have seen and evaluated the patient and agree with the residents note unless specified in my note - Referral to Home Health Primary Care Physician: PCP None - Patient Data Vitals - Most Recent: Last Vital Signs Temp 36.4 C 01/24/21 12:00 Pulse 68 01/24/21 12:00 Resp 18 01/24/21 12:00 BP 118/71 01/24/21 12:00 Pulse Ox 93 L 01/24/21 12:00 Med Orders - Current: Current Medications Discontinued Medications Acetaminophen (Tylenol) 650 mg PO Q4H PRN PRN Reason: Pain (Mild 1-3)/fever Last Admin: 01/21/21 20:13 Dose: 650 mg Documented by: Albuterol/Ipratropium (Combivent Respimat) 0 gm INH QID [facility] Last Admin: 01/24/21 12:08 Dose: 1 puff Documented by: Atorvastatin Calcium (Lipitor) 40 mg PO DAILY [facility] Dexamethasone (Decadron) 6 mg IVPUSH ONETIME ONE Stop: 01/20/21 08:38 Last Admin: 01/20/21 08:50 Dose: 6 mg Documented by: Dexamethasone (Dexamethasone) 6 mg PO DAILY@1200 [facility] Last Admin: 01/24/21 12:07 Dose: 6 mg Documented by: Docusate Sodium (Colace) 100 mg PO BID PRN PRN Reason: Constipation Enoxaparin Sodium (Lovenox) 40 mg SUBCUT Q24H [facility] Last Admin: 01/22/21 11:37 Dose: 40 mg Documented by: Heparin Sodium (Porcine) (Heparin Sodium) 5,000 units SUBCUT Q12H [facility] Last Admin: 01/24/21 12:07 Dose: 5,000 units Documented by: Pantoprazole Sodium 40 mg/ (Sodium Chloride) 10 mls @ 300 mls/hr IV ONETIME ONE Stop: 01/20/21 12:01 Last Admin: 01/20/21 12:31 Dose: 300 mls/hr Documented by: Levofloxacin/Dextrose 750 mg/ (Premix) 150 mls @ 100 mls/hr IV Q24H [facility] Last Admin: 01/24/21 12:07 Dose: 100 mls/hr Documented by: Remdesivir 200 mg/ Sodium (Chloride) 250 mls @ 250 mls/hr IV ONETIME ONE Stop: 01/20/21 12:59 Last Admin: 01/20/21 14:18 Dose: Not Given Documented by: Remdesivir 100 mg/ Sodium (Chloride) 100 mls @ 100 mls/hr IV Q24H [facility] Stop: 01/24/21 14:59 Last Admin: 01/23/21 14:59 Dose: 100 mls/hr Documented by: Remdesivir 200 mg/ Sodium (Chloride) 250 mls @ 250 mls/hr IV ONETIME ONE Stop: 01/20/21 14:59 Last Admin: 01/20/21 14:12 Dose: 250 mls/hr Documented by: Remdesivir 100 mg/ Sodium (Chloride) 100 mls @ 100 mls/hr IV Q24H [facility] Stop: 01/24/21 11:59 Last Admin: 01/24/21 11:16 Dose: 100 mls/hr Documented by: Losartan Potassium (Cozaar) 12.5 mg PO DAILY [facility] Last Admin: 01/24/21 08:57 Dose: 12.5 mg Documented by: Ondansetron HCl (Zofran) 4 mg IVPUSH Q4H PRN PRN Reason: Nausea Pantoprazole Sodium (Protonix) 40 mg PO ACBREAKFAST [facility] Last Admin: 01/24/21 06:35 Dose: 40 mg Documented by: Sodium Chloride (Saline Flush) 2.5 ml FLUSH ASDIRECTED PRN PRN Reason: Keep Vein Open Last Admin: 01/21/21 20:14 Dose: 2.5 ml Documented by:
[2021-01-24] MEDS: Dexamethasone 4 MG Tab PO SCH (12:07)
[2021-01-24] MEDS: Levofloxacin/Dextrose 5%-Water 750 MG in Premix Bag 1 BAG IV SCH (12:07)
[2021-01-24] MEDS: Heparin Sodium 5,000 Units/ML Vial SUBCUT SCH (12:07)
[2021-01-24 15:14] VITALS: PULSE 68
[2021-01-24 15:19] VITALS: BP 118/71
== END 2021-01-24 15:00 | disposition home or self-care (01) | DRG 137 ==
LOC: MW.ED 08:21 → MW.MS 09:42 → MW.ED 10:11
PROVIDERS: ADMIT Internal Medicine; ATTEND Internal Medicine
PROC: XW033E5 Introduction of Remdesivir Anti-infective into Peripheral Vein, Percutaneous Approach, New Technology Group 5 (ICD-10-PCS; principal; 2021-01-20)
DX: U07.1 COVID-19 (principal); J96.01 Acute respiratory failure with hypoxia; J12.82 Pneumonia due to coronavirus disease 2019; R74.01 Elevation of levels of liver transaminase levels; E78.00 Pure hypercholesterolemia, unspecified; K21.9 Gastro-esophageal reflux disease without esophagitis; M54.9 Dorsalgia, unspecified; G89.29 Other chronic pain; G62.9 Polyneuropathy, unspecified; E78.5 Hyperlipidemia, unspecified; Z88.1 Allergy status to other antibiotic agents; Z88.0 Allergy status to penicillin; Z79.899 Other long term (current) drug therapy; Z98.890 Other specified postprocedural states
CPT/HCPCS: 36415; 71045; 71045-26; 80048; 80053; 80076; 83036; 83735; 85025; 94640; 96374; 99222; 99231; 99232; 99238; 99285; 99285-25; A9270-GY; C9113; J1100; J1644; J1650; J1956; J7050; J8540